=== PATIENT | female | born 1935 | race Caucasian/White ===

== ENCOUNTER 2018-04-06 15:37 | Emergency (ER) | payer OTHER ==
--- NOTE | 2018-04-06 16:37 | RAD REPORT ---
EXAM DESCRIPTION: CT - CTHCSPWOC - 04/06/2018 4:18 pm CLINICAL HISTORY: Fall, head and neck trauma COMPARISON: CT imaging August 2016, CT head examination October 2017 TECHNIQUE: Axial 5 mm thick images of the head were obtained. Axial 2 mm thick images of the cervic al spine were obtained with sagittal and coronal reconstruction images generated and reviewed. All CT scans are performed using dose optimization technique as appropriate and may include automated exposure control or mA/KV adjustment according to patient size. FINDINGS: No intracranial hemorrhage. No mass effect, edema or shift of midline structures. Patient has underlying atrophy and chronic ischemic change similar to prior imaging. Ventricles are in propor tion to volume loss. No suspicion for acute infarction. No extra-axial fluid collections. Mastoid air cells and paranasal sinuses are clear. No globe or orbit abnormality seen. Small right frontal scalp hematoma is present. Posterior fossa assessment is limited. Cervical body height and alignment are normal. C5-6 and C6-7 disc space narrowing posteriorly noted. This is not significantly different from comparison. No fracture or acute bony abnormality. No paraspinal mass or hematoma. IMPRESSION: Atrophy and chronic ischemic changes are present similar to comparison. No hemorrhage or other acute intracranial finding. Cervical spine degenerative change similar to comparison. No acute findings noted.
--- NOTE | 2018-04-06 16:59 | RAD REPORT ---
EXAM DESCRIPTION: RAD - Knee Right 3 View - 04/06/2018 4:32 pm CLINICAL HISTORY: Trip and fall, knee pain COMPARISON: None. FINDINGS: No fracture, dislocation or periosteal reaction.No joint effusion seen. No joint space sánchez rowing. No foreign body or other soft tissue abnormality. Mild degenerative spurring along the articular margins the patella. IMPRESSION: Mild degenerative change with no acute finding. Concerns for internal derangement or occult bone process can be addressed with MR imaging.
--- NOTE | 2018-04-06 17:08 | ER ---
Nurse's Notes [facility] Name: Argenis Wayne Age: 82 yrs Sex: Female : 1935 Arrival Date: 04/06/2018 Time: 15:44 Bed 26 Private MD: Diagnosis: Contusion of other part of head;Other internal derangements of knee Presentation: 04/06 15:51 Presenting complaint: EMS states: pt was going to check her mail when she tripped over tl3 her shoe and fell forward and hit her head on the floor, no LOC, no vomiting, pt has small laceration/ avulsion to center of forehead, no active bleeding. Transition of care: patient was received from another setting of care (long-term care facility), [facility]. Onset of symptoms was April 06, 2018 at 15:54. Risk Assessment: Do you want to hurt yourself or someone else? Patient reports no desire to harm self or others. Initial Sepsis Screen: Does the patient meet any 2 criteria? No. Patient's initial sepsis screen is negative. Does the patient have a suspected source of infection? No. Patient's initial sepsis screen is negative. Care prior to arrival: None. 15:51 Method Of Arrival: EMS: [facility] tl3 15:51 Acuity: IVAN 3 tl3 Triage Assessment: 16:05 General: Appears comfortable, well groomed, well developed, well nourished, Behavior is tl3 calm, cooperative, appropriate for age. Pain: Complains of pain in forehead. EENT: No deficits noted. Neuro: Level of Consciousness is awake, alert, obeys commands, Oriented to person, place, time, situation, Appropriate for age. Cardiovascular: Heart tones S1 S2 present Patient's skin is warm and dry. Rhythm is regular. Respiratory: Airway is patent Respiratory effort is even, unlabored, Respiratory pattern is regular, symmetrical, Breath sounds are clear bilaterally. GI: No signs and/or symptoms were reported involving the gastrointestinal system. : No signs and/or symptoms were reported regarding the genitourinary system. Derm: Wound noted forehead Wound is laceration/avulsion 1 in. Musculoskeletal: No signs and/or symptoms reported regarding the musculoskeletal system. Historical: - Allergies: 16:05 atorvastatin; tl3 16:05 Hydrocodone-Acetaminophen; tl3 16:05 PROPOXYPHENE; tl3 16:05 Sulfa (Sulfonamide Antibiotics); tl3 - Home Meds: 16:05 amlodipine 5 mg tab 1 tab once daily [Active]; [place] Thyroid 60 mg Oral tab for tl3 Hypothyroidism [Active]; aspirin 81 mg Oral TbEC 1 tab once daily for Myocardial Infarction Prevention [Active]; carvedilol 3.125 mg Oral tab 1 tab 2 times per day for Hypertension [Active]; Centrum Silver Oral daily [Active]; digoxin 125 mcg Oral tab 1 tab once daily [Active]; donepezil 10 mg Oral tab 1 tab once daily [Active]; Invokamet 150-1,000 mg oral tab 1 tab 2 times per day [Active]; Januvia 100 mg Oral tab 1 tab once daily [Active]; memantine 10 mg oral tab [Active]; naproxen sodium 500 mg Oral TM24 1 tabs twice a day [Active]; olanzapine 2.5 mg oral tab 1 tabs once daily [Active]; pantoprazole 40 mg oral TbEC 1 tab once daily [Active]; Restasis 0.05 % ophthalmic dpet 1 drop 2 times per day [Active]; sertraline 100 mg Oral tab 1.5 tabs once daily [Active]; simvastatin 40 mg Oral tab 1 tab once daily [Active]; Vitamin B-12 1,000 mcg Oral TbER 2000 mcg daily [Active]; Vitamin D Oral 1000 unit daily [Active]; - PMHx: 16:05 Anxiety; CAD; Dementia; Diabetes - NIDDM; GERD; High Cholesterol; Hypertension; tl3 Hypothyroidism; - Immunization history:: Adult Immunizations up to date. - Social history:: Smoking status: unknown. - Ebola Screening: : Patient denies travel to an Ebola-affected area in the 21 days before illness onset. Screenin:08 Abuse screen: Denies threats or abuse. Nutritional screening: No deficits noted. tl3 Tuberculosis screening: No symptoms or risk factors identified. Fall Risk Fall in past 12 months (25 points). Assessment: 16:08 Reassessment: Patient is alert, oriented x 3, equal unlabored respirations, skin tl3 warm/dry/pink. pt AAOX4 going to CT. General: Appears. 17:10 Reassessment: Patient appears in no apparent distress at this time. No changes from tl3 previously documented assessment. Patient and/or family updated on plan of care and expected duration. Pain level reassessed. Patient is alert, oriented x 3, equal unlabored respirations, skin warm/dry/pink. 17:39 Reassessment: Patient appears in no apparent distress at this time. No changes from tl3 previously documented assessment. Patient and/or family updated on plan of care and expected duration. Pain level reassessed. Patient is alert, oriented x 3, equal unlabored respirations, skin warm/dry/pink. wound cleaned and dressed with neosporin and a bandaid. Vital Signs: 16:08 BP 136 / 57; Pulse 60; Resp 18; Temp 98.3; Pulse Ox 100% ; tl3 17:10 BP 129 / 60; Pulse 58; Resp 18; Pulse Ox 95% ; tl3 17:39 BP 129 / 57; Pulse 58; Resp 18; Pulse Ox 96% ; tl3 ED Course: 15:44 Patient arrived in ED. iw 15:49 Eduardo Mcmullen MD is Attending Physician. gs 15:51 Yvonne Silveira, RN is Primary Nurse. tl3 15:55 Triage completed. tl3 16:[address] vm2 16:08 Arm band placed on left wrist. tl3 16:08 Patient has correct armband on for positive identification. Bed in low position. Call tl3 light in reach. Side rails up X2. Pulse ox on. NIBP on. Warm blanket given. 16:08 No provider procedures requiring assistance completed. tl3 16:19 CT Head C Spine In Process Unspecified. EDMS 16:26 X-ray completed. Patient tolerated procedure well. Patient moved back from radiology. mh1 16:26 Knee Right 3 View XRAY In Process Unspecified. EDMS 16:34 EKG done, by manometer technician. reviewed by Eduardo Mcmullen MD. at1 17:10 Patient did not have IV access during this emergency room visit. tl3 Administered Medications: 17:38 Drug: Tetanus-Diphtheria Toxoid Adult 0.5 ml {Roll Wrapper: [employer] ([employer]). Exp: tl3 06/18/2020. Lot #: [id number]. } Route: IM; Site: left deltoid; 17:38 Follow up: Response: Medication administered at discharge. tl3 Outcome: 17:08 Discharge ordered by . gs 17:39 Discharged to home ambulatory, with friend. tl3 17:39 Condition: stable 17:39 Discharge instructions given to patient, friend, Instructed on discharge instructions, follow up and referral plans. Demonstrated understanding of instructions, follow-up care, wound care. 17:41 Patient left the ED. tl3 Signatures: Dispatcher [employer] EDMS Lisa Esqueda mh1 Piper Perez, RN RN iw [address], natural resource specialist EKG Tat1 Jolly Coy 2 Eduardo Mcmullen MD MD gs Lowrey, Tammy, URVASHI RN tl3
--- NOTE | 2018-04-06 17:08 | EDPHYS ---
Physician Documentation [facility] Name: Argenis Wayne Age: 82 yrs Sex: Female : 1935 Arrival Date: 04/06/2018 Time: 15:44 Bed 26 Private MD: ED Physician Eduardo Mcmullen HPI: 04/06 16:52 This 82 yrs old Female presents to ER via EMS with unknown complaint. gs 16:52 Details of fall: The patient fell from an upright position. Onset: The symptoms/episode gs began/occurred acutely, just prior to arrival. Associated injuries: The patient sustained injury to the head, abrasion. Severity of symptoms: At their worst the symptoms were moderate. The patient has experienced similar episodes in the past, a few times. The patient has not recently seen a physician. Historical: - Allergies: 16:05 atorvastatin; tl3 16:05 Hydrocodone-Acetaminophen; tl3 16:05 PROPOXYPHENE; tl3 16:05 Sulfa (Sulfonamide Antibiotics); tl3 - Home Meds: 16:05 amlodipine 5 mg tab 1 tab once daily [Active]; [place] Thyroid 60 mg Oral tab for tl3 Hypothyroidism [Active]; aspirin 81 mg Oral TbEC 1 tab once daily for Myocardial Infarction Prevention [Active]; carvedilol 3.125 mg Oral tab 1 tab 2 times per day for Hypertension [Active]; Centrum Silver Oral daily [Active]; digoxin 125 mcg Oral tab 1 tab once daily [Active]; donepezil 10 mg Oral tab 1 tab once daily [Active]; Invokamet 150-1,000 mg oral tab 1 tab 2 times per day [Active]; Januvia 100 mg Oral tab 1 tab once daily [Active]; memantine 10 mg oral tab [Active]; naproxen sodium 500 mg Oral TM24 1 tabs twice a day [Active]; olanzapine 2.5 mg oral tab 1 tabs once daily [Active]; pantoprazole 40 mg oral TbEC 1 tab once daily [Active]; Restasis 0.05 % ophthalmic dpet 1 drop 2 times per day [Active]; sertraline 100 mg Oral tab 1.5 tabs once daily [Active]; simvastatin 40 mg Oral tab 1 tab once daily [Active]; Vitamin B-12 1,000 mcg Oral TbER 2000 mcg daily [Active]; Vitamin D Oral 1000 unit daily [Active]; - PMHx: 16:05 Anxiety; CAD; Dementia; Diabetes - NIDDM; GERD; High Cholesterol; Hypertension; tl3 Hypothyroidism; - Immunization history:: Adult Immunizations up to date. - Social history:: Smoking status: unknown. - Ebola Screening: : Patient denies travel to an Ebola-affected area in the 21 days before illness onset. ROS: 16:52 Cardiovascular: Negative for chest pain, palpitations. gs 16:52 Respiratory: Negative for shortness of breath. 16:52 Neuro: Negative for syncope, near syncope. 16:52 All other systems are negative. Exam: 16:52 Eyes: Pupils equal round and reactive to light, extra-ocular motions intact. Lids and gs lashes normal. Conjunctiva and sclera are non-icteric and not injected. Cornea within normal limits. Periorbital areas with no swelling, redness, or edema. ENT: Nares patent. No nasal discharge, no septal abnormalities noted. Tympanic membranes are normal and external auditory canals are clear. Oropharynx with no redness, swelling, or masses, exudates, or evidence of obstruction, uvula midline. Mucous membranes moist. Neck: Trachea midline, no thyromegaly or masses palpated, and no cervical lymphadenopathy. Supple, full range of motion without nuchal rigidity, or vertebral point tenderness. No Meningismus. Chest/axilla: Normal chest wall appearance and motion. Nontender with no deformity. No lesions are appreciated. Cardiovascular: Regular rate and rhythm with a normal S1 and S2. No gallops, murmurs, or rubs. Normal PMI, no JVD. No pulse deficits. Respiratory: Lungs have equal breath sounds bilaterally, clear to auscultation and percussion. No rales, rhonchi or wheezes noted. No increased work of breathing, no retractions or nasal flaring. Abdomen/GI: Soft, non-tender, with normal bowel sounds. No distension or tympany. No guarding or rebound. No evidence of tenderness throughout. Back: No spinal tenderness. No costovertebral tenderness. Full range of motion. Neuro: Awake and alert, GCS 15, oriented to person, place, time, and situation. Cranial nerves II-XII grossly intact. Motor strength 5/5 in all extremities. Sensory grossly intact. Cerebellar exam normal. Normal gait. 16:52 Constitutional: The patient appears alert, awake. 16:52 Head/face: Noted is abrasion(s), that are mild, of the forehead, hematoma, that is mild, of the forehead. 16:52 ECG was reviewed by the Attending Physician. 16:52 Musculoskeletal/extremity: Circulation is intact in all extremities. Joints: the right knee displays painful range of motion, swelling, tenderness. 16:52 Skin: injury, abrasion(s). Vital Signs: 16:08 BP 136 / 57; Pulse 60; Resp 18; Temp 98.3; Pulse Ox 100% ; tl3 17:10 BP 129 / 60; Pulse 58; Resp 18; Pulse Ox 95% ; tl3 17:39 BP 129 / 57; Pulse 58; Resp 18; Pulse Ox 96% ; tl3 MDM: 16:00 Patient medically screened. gs 16:52 Differential diagnosis: abrasion, closed head injury, fracture, laceration. Data gs reviewed: vital signs, nurses notes. Response to treatment: the patient's symptoms have markedly improved after treatment, and as a result, I will discharge patient. 04/06 16:01 Order name: CT Head C Spine; Complete Time: 17:06 04/06 16:01 Order name: Knee Right 3 View XRAY; Complete Time: 17:06 gs 04/06 16:06 Order name: EKG; Complete Time: 16:06 gs 04/06 16:06 Order name: EKG - Nurse/Tech; Complete Time: 16:47 gs EC:52 Rate is 56 beats/min. Rhythm is regular. WA interval is normal. QRS interval is normal. gs QT interval is normal. T waves are Flattened. No ST changes noted. Clinical impression: NSR w/ Non-specific ST/T Changes. Interpreted by me. Administered Medications: 17:38 Drug: Tetanus-Diphtheria Toxoid Adult 0.5 ml {Informatics Coordinator: [employer] ([employer]). Exp: tl3 06/18/2020. Lot #: [id number]. } Route: IM; Site: left deltoid; 17:38 Follow up: Response: Medication administered at discharge. tl3 Disposition: 04/06/18 17:08 Discharged to Home. Impression: Contusion of other part of head, Other internal derangements of knee. - Condition is Stable. - Discharge Instructions: Head Injury, Adult, Knee Pain. - Medication Reconciliation Form, Thank You Letter, Antibiotic Education, Prescription Opioid Use form. - Follow up: Private Physician; When: 2 - 3 days; Reason: Re-evaluation by your physician. Signatures: Dispatcher [employer] Eduardo Tripathi MD MD Yvonne Silveira, RN RN tl3 Corrections: (The following items were deleted from the chart) 17:41 17:08 04/06/2018 17:08 Discharged to Home. Impression: Contusion of other part of head; tl3 Other internal derangements of knee. Condition is Stable. Forms are Medication Reconciliation Form, Thank You Letter, Antibiotic Education, Prescription Opioid Use. Follow up: Private Physician; When: 2 - 3 days; Reason: Re-evaluation by your physician. gs
[2018-04-06] MEDS ORDERED: TETANUS & DIPHTHERIA TOX,ADULT 0.5 ML VIAL ONE (17:15)
--- NOTE | 2018-04-06 20:36 | EKG ---
Test Date: 2018-04-06 Test Time: 16:37:11 Jet Engine Mechanic: BRENDA MEASUREMENT RESULTS: Intervals: Rate: 56 UT: 156 QRSD: 84 QT: 432 QTc: 416 [place]: P: 61 UT: 156 QRS: 43 T: 38 INTERPRETIVE STATEMENTS: Sinus bradycardia Nonspecific ST abnormality Abnormal ECG Compared to ECG 11/17/2017 22:30:38 ST (T wave) deviation now present Myocardial infarct finding no longer present Electronically Signed On 04-06-18 20:35:12 CDT by Evens Ash
== END 2018-04-06 17:41 | disposition home or self-care (01) ==
LOC: ER 15:37
DX: M23.8X1 Other internal derangements of right knee (principal); W18.39XA Other fall on same level, initial encounter; Y93.89 Activity, other specified; Y92.9 Unspecified place or not applicable; Z23 Encounter for immunization; I10 Essential (primary) hypertension; E11.9 Type 2 diabetes mellitus without complications; E78.00 Pure hypercholesterolemia, unspecified; E03.9 Hypothyroidism, unspecified; Z79.82 Long term (current) use of aspirin; Z88.2 Allergy status to sulfonamides; Z88.5 Allergy status to narcotic agent; Z88.8 Allergy status to other drugs, medicaments and biological substances
CPT/HCPCS: 70450; 72125; 90714; 93005; 99284

== ENCOUNTER 2018-09-27 15:18 | Emergency (ER) | payer OTHER ==
--- NOTE | 2018-09-27 16:04 | RAD REPORT ---
EXAM DESCRIPTION: CT - CTHCSPWOC - 09/27/2018 3:52 pm CLINICAL HISTORY: Fall, head and neck injury COMPARISON: CT head and cervical March 2018 TECHNIQUE: Axial 5 mm thick images of the head were obtained. Axial 2 mm thick images of the cervic al spine were obtained with sagittal and coronal reconstruction images generated and reviewed. All CT scans are performed using dose optimization technique as appropriate and may include automated exposure control or mA/KV adjustment according to patient size. FINDINGS: No intracranial hemorrhage, mass, edema or acute intracranial finding. No suspicion for acute infarct ion. Atrophy and chronic ischemic changes are present. Ventricles appear slightly of proportion to th e amount of volume loss. Ventricular size has not changed from [place] imaging. Mastoid air cells and pa ranasal sinuses are clear. No globe or orbit abnormality seen. Minimal contusion or hematoma in the p osterior right parietal scalp soft tissues. Cervical bodies are normal in height. There is a very slight anterior subluxation of C5 on C6 that is similar to [place]. Very pronounced degenerative change surrounds the dens and anterior arch C1. Mild d isc space narrowing throughout the cervical spine. No fracture or acute bony abnormality. No paraspinal mass or hematoma. IMPRESSION: No hemorrhage, edema or acute intracranial finding. Atrophy and chronic ischemic changes are present. Ventricles are prominent. Intracranial findings mat ch the March study. Cervical spine degenerative change present matching the March study. No acute cervical spine finding.
--- NOTE | 2018-09-27 16:12 | ER ---
Nurse's Notes [facility] Name: Argenis Wayne Age: 83 yrs Sex: Female : 1935 Arrival Date: 09/27/2018 Time: 15:19 Bed 28 Private MD: Diagnosis: Hematoma scalp;Acute pain due to trauma Presentation: 09/27 15:19 Presenting complaint: EMS states: EMT STATES: PATIENT IS FROM [facility], SHE WAS IN THE [facility]ITY C[facility]. SHE FELL FROM STANDING AND HIT HER HEAD. DID NOT COMPLAIN OF ANY PROBLEM INITIALLY BUT MINUTES AFTER PATIENT HAVING NECK PAIN AND HEADACHE AND STARTED TO GET NAUSEA. PATIENT IS NOT ON BLOOD THINNERS. Transition of care: [facility]. Onset of symptoms was September 27, 2018 at 14:45. Risk Assessment: Do you want to hurt yourself or someone else? Patient reports no desire to harm self or others. Initial Sepsis Screen: Does the patient meet any 2 criteria? No. Patient's initial sepsis screen is negative. Does the patient have a suspected source of infection? No. Patient's initial sepsis screen is negative. Care prior to arrival: None. 15:19 Method Of Arrival: EMS: [facility] rv 15:19 Acuity: IVAN 3 rv Historical: - Allergies: 15:26 atorvastatin; rv 15:26 Hydrocodone-Acetaminophen; rv 15:26 PROPOXYPHENE; rv 15:26 Sulfa (Sulfonamide Antibiotics); rv - Home Meds: 15:26 amlodipine 5 mg tab 1 tab once daily [Active]; [place] Thyroid 60 mg Oral tab for rv Hypothyroidism [Active]; aspirin 81 mg Oral TbEC 1 tab once daily for Myocardial Infarction Prevention [Active]; carvedilol 3.125 mg Oral tab 1 tab 2 times per day for Hypertension [Active]; Centrum Silver Oral daily [Active]; digoxin 125 mcg Oral tab 1 tab once daily [Active]; donepezil 10 mg Oral tab 1 tab once daily [Active]; Invokamet 150-1,000 mg Oral tab 1 tab 2 times per day [Active]; Januvia 100 mg Oral tab 1 tab once daily [Active]; memantine 10 mg Oral tab [Active]; naproxen sodium 500 mg Oral TM24 1 tabs twice a day [Active]; olanzapine 2.5 mg Oral tab 1 tabs once daily [Active]; pantoprazole 40 mg Oral TbEC 1 tab once daily [Active]; Restasis 0.05 % ophthalmic dpet 1 drop 2 times per day [Active]; sertraline 100 mg Oral tab 1.5 tabs once daily [Active]; simvastatin 40 mg Oral tab 1 tab once daily [Active]; Vitamin B-12 1,000 mcg Oral TbER 2000 mcg daily [Active]; Vitamin D Oral 1000 unit daily [Active]; - PMHx: 15:26 Anxiety; CAD; Dementia; Diabetes - NIDDM; GERD; High Cholesterol; Hypertension; rv Hypothyroidism; - PSHx: 15:26 None; rv - Immunization history:: Adult Immunizations unknown, Flu vaccine status is unknown. - Social history:: Smoking status: Patient/guardian denies using tobacco, never smoked. - Ebola Screening: : Patient negative for fever greater than or equal to 101.5 degrees Fahrenheit, and additional compatible Ebola Virus Disease symptoms Patient denies exposure to infectious person Patient denies travel to an Ebola-affected area in the 21 days before illness onset. Screenin:28 Abuse screen: Denies threats or abuse. Denies injuries from another. Nutritional rv screening: No deficits noted. Tuberculosis screening: No symptoms or risk factors identified. Fall Risk None identified. Assessment: 15:27 General: Appears in no apparent distress. comfortable, Behavior is calm, cooperative. rv Pain: Complains of pain in HEAD. Neuro: Level of Consciousness is awake, alert, obeys commands, Oriented to person, place, time, situation. Cardiovascular: Capillary refill < 3 seconds. Respiratory: Airway is patent. GI: No signs and/or symptoms were reported involving the gastrointestinal system. : No signs and/or symptoms were reported regarding the genitourinary system. EENT: No signs and/or symptoms were reported regarding the EENT system. Derm: Skin is intact. Musculoskeletal: Reports pain in HEAD. Vital Signs: 15:27 BP 124 / 54; Pulse 60; Resp 16; Temp 97.7; Pulse Ox 97% on R/A; Weight 65.77 kg (R); rv 16:01 BP 137 / 54; Pulse 61; Resp 16; Pulse Ox 97% on R/A; rv ED Course: 15:19 Patient arrived in ED. rv 15:20 Charlie Sharp PA is PHCP. jr8 15:20 Doug Medina MD is Attending Physician. jr8 15:22 Triage completed. rv 15:28 Patient has correct armband on for positive identification. Bed in low position. Call rv light in reach. Side rails up X2. Pulse ox on. NIBP on. 15:29 Patient placed in an exam room, on a stretcher, on pulse oximetry, Patient notified of rv wait time Patient's private physician notified. 15:51 CT completed. Patient tolerated procedure well. Patient moved back from CT. 15:52 CT Head C Spine In Process Unspecified. EDMS 16:29 No provider procedures requiring assistance completed. Patient did not have IV access rv during this emergency room visit. Administered Medications: No medications were administered Outcome: 16:11 Discharge ordered by . jr8 16:29 Discharged to home via wheelchair. rv 16:29 Condition: good 16:29 Discharge instructions given to bench hand, Instructed on discharge instructions, follow up and referral plans. Demonstrated understanding of instructions, follow-up care. 16:30 Patient left the ED. rv Signatures: Dispatcher [employer] EDAK Theo Sidhu Charlie Sharp PA PA jr8 Tu Carey, RN RN rv
--- NOTE | 2018-09-27 16:12 | EDPHYS ---
Physician Documentation [facility] Name: Argenis Wayne Age: 83 yrs Sex: Female : 1935 Arrival Date: 09/27/2018 Time: 15:19 Bed 28 Private MD: ED Physician Doug Medina HPI: 09/27 15:58 This 83 yrs old Female presents to ER via EMS with complaints of fall injury. jr8 15:58 Details of fall: The patient fell from an upright position, while standing. Onset: The jr8 symptoms/episode began/occurred acutely, today. Associated injuries: The patient sustained injury to the head, neck injury. Severity of symptoms: At their worst the symptoms were mild, in the emergency department the symptoms are unchanged. The patient has not experienced similar symptoms in the past. The patient has not recently seen a physician. Patient stated that she was standing and accidently fell landing on back of head. Complained of head and neck pain with nausea. Denies any other pain or complaints. Denies any symptoms preceding fall. Historical: - Allergies: 15:26 atorvastatin; rv 15:26 Hydrocodone-Acetaminophen; rv 15:26 PROPOXYPHENE; rv 15:26 Sulfa (Sulfonamide Antibiotics); rv - Home Meds: 15:26 amlodipine 5 mg tab 1 tab once daily [Active]; [place] Thyroid 60 mg Oral tab for rv Hypothyroidism [Active]; aspirin 81 mg Oral TbEC 1 tab once daily for Myocardial Infarction Prevention [Active]; carvedilol 3.125 mg Oral tab 1 tab 2 times per day for Hypertension [Active]; Centrum Silver Oral daily [Active]; digoxin 125 mcg Oral tab 1 tab once daily [Active]; donepezil 10 mg Oral tab 1 tab once daily [Active]; Invokamet 150-1,000 mg Oral tab 1 tab 2 times per day [Active]; Januvia 100 mg Oral tab 1 tab once daily [Active]; memantine 10 mg Oral tab [Active]; naproxen sodium 500 mg Oral TM24 1 tabs twice a day [Active]; olanzapine 2.5 mg Oral tab 1 tabs once daily [Active]; pantoprazole 40 mg Oral TbEC 1 tab once daily [Active]; Restasis 0.05 % ophthalmic dpet 1 drop 2 times per day [Active]; sertraline 100 mg Oral tab 1.5 tabs once daily [Active]; simvastatin 40 mg Oral tab 1 tab once daily [Active]; Vitamin B-12 1,000 mcg Oral TbER 2000 mcg daily [Active]; Vitamin D Oral 1000 unit daily [Active]; - PMHx: 15:26 Anxiety; CAD; Dementia; Diabetes - NIDDM; GERD; High Cholesterol; Hypertension; rv Hypothyroidism; - PSHx: 15:26 None; rv - Immunization history:: Adult Immunizations unknown, Flu vaccine status is unknown. - Social history:: Smoking status: Patient/guardian denies using tobacco, never smoked. - Ebola Screening: : Patient negative for fever greater than or equal to 101.5 degrees Fahrenheit, and additional compatible Ebola Virus Disease symptoms Patient denies exposure to infectious person Patient denies travel to an Ebola-affected area in the 21 days before illness onset. ROS: 15:58 Eyes: Negative for injury, pain, redness, and discharge, ENT: Negative for injury, jr8 pain, and discharge, Cardiovascular: Negative for chest pain, palpitations, and edema, Respiratory: Negative for shortness of breath, cough, wheezing, and pleuritic chest pain, Abdomen/GI: Negative for abdominal pain, nausea, vomiting, diarrhea, and constipation, Back: Negative for injury and pain, MS/Extremity: Negative for injury and deformity, Skin: Negative for injury, rash, and discoloration. 15:58 Neck: Positive for pain with movement, Negative for pain at rest, tenderness, bony tenderness. 15:58 Neuro: Positive for headache, Negative for altered mental status, dizziness, gait disturbance, loss of consciousness, numbness, seizure activity, speech changes, syncope, near syncope, tingling, tinnitus, tremor, visual changes, weakness. Exam: 15:58 Eyes: Pupils equal round and reactive to light, extra-ocular motions intact. Lids and jr8 lashes normal. Conjunctiva and sclera are non-icteric and not injected. Cornea within normal limits. Periorbital areas with no swelling, redness, or edema. ENT: Nares patent. No nasal discharge, no septal abnormalities noted. Tympanic membranes are normal and external auditory canals are clear. Oropharynx with no redness, swelling, or masses, exudates, or evidence of obstruction, uvula midline. Mucous membranes moist. Cardiovascular: Regular rate and rhythm with a normal S1 and S2. No gallops, murmurs, or rubs. Normal PMI, no JVD. No pulse deficits. Respiratory: Lungs have equal breath sounds bilaterally, clear to auscultation and percussion. No rales, rhonchi or wheezes noted. No increased work of breathing, no retractions or nasal flaring. Abdomen/GI: Soft, non-tender, with normal bowel sounds. No distension or tympany. No guarding or rebound. No evidence of tenderness throughout. Back: No spinal tenderness. No costovertebral tenderness. Full range of motion. Skin: Warm, dry with normal turgor. Normal color with no rashes, no lesions, and no evidence of cellulitis. MS/ Extremity: Pulses equal, no cyanosis. Neurovascular intact. Full, normal range of motion. Neuro: Awake and alert, GCS 15, oriented to person, place, time, and situation. Cranial nerves II-XII grossly intact. Motor strength 5/5 in all extremities. Sensory grossly intact. Cerebellar exam normal. Normal gait. 15:58 Head/face: Noted is hematoma, that is mild, of the left occipital area. 15:58 Neck: External neck: is normal, C-spine: appears grossly normal, no vertebral tenderness, no crepitus, Thyroid: appears normal, Trachea: is midline with no obvious abnormalities, ROM/movement: pain, that is mild, with any movement, Lymph nodes: no appreciated lymphadenopathy. Vital Signs: 15:27 BP 124 / 54; Pulse 60; Resp 16; Temp 97.7; Pulse Ox 97% on R/A; Weight 65.77 kg (R); rv 16:01 BP 137 / 54; Pulse 61; Resp 16; Pulse Ox 97% on R/A; rv MDM: 15:20 Patient medically screened. jr8 16:10 Data reviewed: vital signs, nurses notes, radiologic studies, CT scan, and as a result, jr8 I will discharge patient. Data interpreted: Pulse oximetry: on room air is 97 %. Interpretation: normal. Counseling: I had a detailed discussion with the patient and/or guardian regarding: the historical points, exam findings, and any diagnostic results supporting the discharge/admit diagnosis, radiology results, the need for outpatient follow up, a family practitioner, to return to the emergency department if symptoms worsen or persist or if there are any questions or concerns that arise at home. 09/27 15:23 Order name: CT Head C Spine; Complete Time: 16:10 jr8 Administered Medications: No medications were administered Disposition: 09/28 06:39 Co-signature as Attending Physician, Doug Medina MD I agree with the assessment and genesis plan of care. Disposition: 09/27/18 16:11 Discharged to Home. Impression: Hematoma scalp, Acute pain due to trauma. - Condition is Stable. - Discharge Instructions: Head Injury, Adult. - Medication Reconciliation Form, Thank You Letter, Antibiotic Education, Prescription Opioid Use form. - Follow up: Private Physician; When: 2 - 3 days; Reason: Recheck today's complaints, Continuance of care, Re-evaluation by your physician. - Problem is new. - Symptoms have improved. Signatures: Dispatcher [employer] EDDoug Caballero MD MD cha Roszak, Josh, PA PA jr8 Tu Carey RN RN rv Corrections: (The following items were deleted from the chart) 09/27 16:30 16:11 09/27/2018 16:11 Discharged to Home. Impression: Hematoma scalp; Acute pain due rv to trauma. Condition is Stable. Forms are Medication Reconciliation Form, Thank You Letter, Antibiotic Education, Prescription Opioid Use. Follow up: Private Physician; When: 2 - 3 days; Reason: Recheck today's complaints, Continuance of care, Re-evaluation by your physician. Problem is new. Symptoms have improved. jr8
== END 2018-09-27 16:30 | disposition home or self-care (01) ==
LOC: ER 15:18
DX: G89.11 Acute pain due to trauma (principal); W18.39XA Other fall on same level, initial encounter; Y93.9 Activity, unspecified; Y92.9 Unspecified place or not applicable; Z79.82 Long term (current) use of aspirin; Z88.2 Allergy status to sulfonamides; Z88.5 Allergy status to narcotic agent; Z88.8 Allergy status to other drugs, medicaments and biological substances; I10 Essential (primary) hypertension; E03.9 Hypothyroidism, unspecified; F03.90 Unspecified dementia, unspecified severity, without behavioral disturbance, psychotic disturbance, mood disturbance, and anxiety; E78.00 Pure hypercholesterolemia, unspecified; E11.9 Type 2 diabetes mellitus without complications
CPT/HCPCS: 70450; 72125; 99284

== ENCOUNTER 2019-02-26 06:58 | Emergency (ER) | payer OTHER ==
--- NOTE | 2019-02-26 08:29 | RAD REPORT ---
EXAM DESCRIPTION: CT - [id number] - 02/26/2019 7:17 am CLINICAL HISTORY: Trauma, head and neck injury. Fall injury;Pain COMPARISON: Head C Spine Mpr Wo Con dated 09/27/2018; Head C Spine Mpr Wo Con dated 04/06/2018; Head C Spine Mpr Wo Con dated 09/09/2016; Head C Spine Mpr Wo Con dated 04/15/2016 TECHNIQUE: Axial 5 mm thick images of the head were obtained. Axial 2 mm thick images of the cervical spine were obtained with sagittal and coronal reconstruction images generated and reviewed. All CT scans are performed using dose optimization technique as appropriate and may include automated exposure control or mA/KV adjustment according to patient size. FINDINGS: CT HEAD WITHOUT CONTRAST: No acute hemorrhage, hydrocephalus or extra-axial collection is identified.No areas of brain edema or midline shift. The paranasal sinuses and mastoids are clear.The calvarium is intact. Small right posterior scalp hem atoma. Vertebral atherosclerosis. CT CERVICAL SPINE WITHOUT CONTRAST: No fracture or subluxation.No prevertebral soft tissues swelling is identified. IMPRESSION: No acute intracranial or cervical spine findings.
[2019-02-26] MEDS ORDERED: LIDOCAINE 1% W/EPI 1:100,000 MDV 50 ML VIAL ONE (09:01)
--- NOTE | 2019-02-26 09:08 | ER ---
Nurse's Notes [facility] Name: Argenis Wayne Age: 83 yrs Sex: Female : 1935 Arrival Date: 02/26/2019 Time: 07:04 Bed 3 Private MD: Diagnosis: Laceration without foreign body of scalp;Superficial injury of head;Fracture of one rib, left side Presentation: 02/26 07:04 Presenting complaint: EMS states: fell in the shower today at 0635 and hit the back of aa5 the head. Negative LOC. Hematoma noted to top of head. Pt is A\T\Ox4. Care prior to arrival: Glucose check: 135. Mechanism of Injury: Fall from standing position. Trauma event details: Injury occurred in the [facility], Injury occurred: at home. Injury occurred: February 26, 2019. 07:04 Method Of Arrival: EMS: [facility] 07:04 Transition of care: patient was received from another setting of care (long-term care [facility] facility), [facility]. Onset of symptoms was February 26, 2019. Risk Assessment: Do you want to hurt yourself or someone else? Patient reports no desire to harm self or others. Initial Sepsis Screen: Does the patient meet any 2 criteria? No. Patient's initial sepsis screen is negative. Does the patient have a suspected source of infection? No. Patient's initial sepsis screen is negative. 07:04 Acuity: IVAN 2 aa5 Trauma Activation: Alert Physician: ED Physician; Name: ; Notified At: ; Arrived At: Physician: General Surgeon; Name: ; Notified At: ; Arrived At: Physician: Radiology; Name: ; Notified At: ; Arrived At: Physician: Respiratory; Name: ; Notified At: ; Arrived At: Physician: Lab; Name: ; Notified At: ; Arrived At: Historical: - Allergies: 07:19 atorvastatin; aa5 07:19 Hydrocodone-Acetaminophen; aa5 07:19 PROPOXYPHENE; aa5 07:19 Sulfa (Sulfonamide Antibiotics); aa5 07:19 Codeine; aa5 - Home Meds: 07:19 amlodipine 5 mg tab 1 tab once daily [Active]; [place] Thyroid 60 mg Oral tab for aa5 Hypothyroidism [Active]; aspirin 81 mg Oral TbEC 1 tab once daily for Myocardial Infarction Prevention [Active]; carvedilol 3.125 mg Oral tab 1 tab 2 times per day for Hypertension [Active]; digoxin 125 mcg Oral tab 1 tab once daily [Active]; donepezil 10 mg Oral tab 1 tab once daily [Active]; Januvia 100 mg Oral tab 1 tab once daily [Active]; memantine 10 mg Oral tab [Active]; metformin 1,000 mg Oral tab 1 tab 2 times per day [Active]; naproxen sodium 500 mg Oral TM24 1 tabs twice a day [Active]; nitrofurantoin macrocrystal 50 mg Oral cap once daily [Active]; olanzapine 2.5 mg oral tab once daily [Active]; pantoprazole 40 mg oral TbEC 1 tab once daily [Active]; sertraline 100 mg Oral tab 1.5 tabs once daily [Active]; simvastatin 40 mg Oral tab 1 tab once daily [Active]; Vitamin B-12 1,000 mcg Oral TbER 2000 mcg daily [Active]; Restasis 0.05 % ophthalmic dpet 1 drop 2 times per day [Active]; Vitamin D3 1,000 unit oral cap daily [Active]; - PMHx: 07:19 Anxiety; CAD; Dementia; Diabetes - NIDDM; GERD; High Cholesterol; Hypertension; aa5 Hypothyroidism; CVA; - Immunization history:: Adult Immunizations unknown. - Social history:: Smoking status: Patient/guardian denies using tobacco. - Immunization history: Last tetanus immunization: unknown. - Ebola Screening: : No symptoms or risks identified at this time. Screenin:05 Abuse screen: No signs of abuse noted. Nutritional screening: No deficits noted. aa5 Tuberculosis screening: No symptoms or risk factors identified. Fall Risk Fall in past 12 months (25 points). Secondary diagnosis (15 points) dementia, Mental Status- Overestimates/Forgets Limitations (15 pts.). Total Shirley Fall Scale indicates High Risk Score (45 or more points). Fall prevention measures have been instituted. Side Rails Up X 2 Placed Close to Nursing Station. Primary Survey: 07:04 NO uncontrolled hemorrhage observed. A: The patient is alert. Airway: patent. aa5 Breathing/Chest: Chest inspection: symmetrical rise and fall of the chest. Circulation: Skin color: pink. Disability Alert. Exposure/Environment: A warming method has been applied: A warm blanket has been provided to the patient. 07:23 Reassessment Airway Airway Patent Breathing/Chest Chest inspection Symmetrical aa5 Circulation Color [place] Disability Alert. Secondary Survey: 07:08 HEENT: Head Other hematoma noted to top of head. Gastrointestinal: No deficits noted. aa5 : No deficits noted. Musculoskeletal: Range of motion: intact in all extremities. Assessment: 07:05 General: Appears comfortable, Behavior is calm, cooperative. Pain: Complains of pain in aa5 head Pain does not radiate. Quality of pain is described as tender, throbbing, Pain began post-fall today Is continuous. Neuro: Level of Consciousness is awake, alert, obeys commands, Oriented to person, place, time, situation, Stain Maker are equal bilaterally Moves all extremities. Speech is normal, Facial symmetry appears normal, Pupils are PERRLA. EENT: No signs and/or symptoms were reported regarding the EENT system. Cardiovascular: Heart tones S1 S2 present Pulses are 3+ in right radial artery and left radial artery Rhythm is regular. Respiratory: Airway is patent Respiratory effort is even, unlabored, Respiratory pattern is regular, symmetrical, Breath sounds are clear bilaterally. GI: Abdomen is round non-distended, Bowel sounds present X 4 quads. Abd is soft and non tender X 4 quads. Patient currently denies nausea, vomiting. : No signs and/or symptoms were reported regarding the genitourinary system. Derm: Skin is pink, warm \T\ dry. Hematoma noted to right side of top of head. Musculoskeletal: Range of motion: intact in all extremities. 07:07 Reassessment: Gauze and Kerlix applied to hematoma, mild bleeding noted. . aa5 07:23 Reassessment: Pt back from CT. aa5 07:25 Reassessment: VO to clean hematoma for better examination by provider. Hematoma cleaned aa5 with saline, moderate bleeding noted, PA notified, pressure dressing applied per provider at this time. . 07:25 Reassessment: Laceration noted to top of hematoma, measuring approximately 1.5in long . aa5 07:25 Reassessment: Patient is alert, oriented x 3, equal unlabored respirations, skin aa5 warm/dry/pink. 08:20 Reassessment: Pt resting in bed with eyes closed, respirations even and unlabored, skin aa5 is pink/warm/dry. Pt's caregiver (Raissa) at bedside . 09:00 Reassessment: Patient is alert, oriented x 3, equal unlabored respirations, skin aa5 warm/dry/pink. Laceration repair being completed by PA. 09:35 Reassessment: Patient is alert, oriented x 3, equal unlabored respirations, skin aa5 warm/dry/pink. Pt complaining of pain to left anterior aspect of lower rib cage, provider notified. . 10:45 Reassessment: Patient is alert, oriented x 3, equal unlabored respirations, skin aa5 warm/dry/pink. Pt assisted with bedpan, pt voided x 1 . 11:30 Reassessment: Patient is alert, oriented x 3, equal unlabored respirations, skin aa5 warm/dry/pink. 12:25 Reassessment: Patient is alert, oriented x 3, equal unlabored respirations, skin aa5 warm/dry/pink. Pt educated on need for incentive spirometer, pt demonstrated on how to use correctly. Pt's caregiver instructed on need for pt to use incentive spirometer at home to prevent Pneumonia. . Vital Signs: 07:05 BP 152 / 66; Pulse 67; Resp 16 S; Temp 98.0(O); Pulse Ox 98% on R/A; aa5 07:39 BP 147 / 65; Pulse 66; Resp 16 S; Pulse Ox 97% on R/A; aa5 08:30 BP 153 / 58; Pulse 64; Resp 16 S; Pulse Ox 95% on R/A; aa5 09:30 BP 145 / 67; Pulse 58; Resp 18 S; Pulse Ox 94% on R/A; aa5 10:30 BP 143 / 62; Pulse 58; Resp 16 S; Pulse Ox 95% on R/A; aa5 11:30 BP 145 / 68; Pulse 60; Resp 18 S; Pulse Ox 96% on R/A; aa5 12:20 BP 143 / 69; Pulse 60; Resp 16 S; Temp 98.0(TE); Pulse Ox 96% on R/A; aa5 Lisa [place]a Score: 07:05 Eye Response: spontaneous(4). Verbal Response: oriented(5). Motor Response: obeys aa5 commands(6). Total: 15. Trauma Score (Adult): 07:05 Eye Response: spontaneous(1); Verbal Response: oriented(1); Motor Response: obeys aa5 commands(2); Systolic BP: > 89 mm Hg(4); Respiratory Rate: 10 to 29 per min(4); Lisa Score: 15; Trauma Score: 12 07:39 Eye Response: spontaneous(1); Verbal Response: oriented(1); Motor Response: obeys aa5 commands(2); Systolic BP: > 89 mm Hg(4); Respiratory Rate: 10 to 29 per min(4); Lisa Score: 15; Trauma Score: 12 08:30 Eye Response: spontaneous(1); Verbal Response: oriented(1); Motor Response: obeys aa5 commands(2); Systolic BP: > 89 mm Hg(4); Respiratory Rate: 10 to 29 per min(4); Lisa Score: 15; Trauma Score: 12 09:30 Eye Response: spontaneous(1); Verbal Response: oriented(1); Motor Response: obeys aa5 commands(2); Systolic BP: > 89 mm Hg(4); Respiratory Rate: 10 to 29 per min(4); Lisa Score: 15; Trauma Score: 12 10:30 Eye Response: spontaneous(1); Verbal Response: oriented(1); Motor Response: obeys aa5 commands(2); Systolic BP: > 89 mm Hg(4); Respiratory Rate: 10 to 29 per min(4); Lisa Score: 15; Trauma Score: 12 11:30 Eye Response: spontaneous(1); Verbal Response: oriented(1); Motor Response: obeys aa5 commands(2); Systolic BP: > 89 mm Hg(4); Respiratory Rate: 10 to 29 per min(4); [place] Score: 15; Trauma Score: 12 12:20 Eye Response: spontaneous(1); Verbal Response: oriented(1); Motor Response: obeys aa5 commands(2); Systolic BP: > 89 mm Hg(4); Respiratory Rate: 10 to 29 per min(4); [place] Score: 15; Trauma Score: 12 ED Course: 07:04 Patient arrived in ED. aa5 07:04 Abi Duarte, RN is Primary Nurse. aa5 07:04 Arm band placed on Patient placed in an exam room, on a stretcher. aa5 07:04 Patient has correct armband on for positive identification. Placed in gown. Bed in low aa5 position. Call light in reach. Side rails up X2. 07:04 Patient maintains SpO2 saturation greater than 95% on room air. Thermoregulation: warm aa5 blanket given to patient. 07:06 Carlos Eduardo Lambert NP is PHCP. pm1 07:06 Doug Medina MD is Attending Physician. pm1 07:07 Triage completed. aa5 07:17 CT completed. Patient tolerated procedure well. Patient moved to CT via stretcher. Patient moved back from CT. 07:19 CT Head C Spine In Process Unspecified. EDMS 09:00 Assist provider with laceration repair on top of head to hematoma using 8 trish . Set aa5 up tray. Performed by Carlos Eduardo Lambert RESIDENTIAL ASSISTANT Dressed with 4X4s, Kerlix, Patient tolerated well. 11:29 Ribs Left XRAY In Process Unspecified. EDMS 11:31 Chest Single View XRAY In Process Unspecified. EDMS 12:25 Patient did not have IV access during this emergency room visit. aa5 Administered Medications: 09:00 Drug: Lidocaine-Epinephrine -1%: (1:100,000) 1 vials {Note: administered by jennifer Mcconnell NP during laceration repair. .} Volume: 20 ml; Route: Infiltration; 12:25 Drug: traMADol 50 mg Route: PO; aa5 12:25 Follow up: Response: Medication administered at discharge. aa5 Intake: 12:20 voided x 1 aa5 Outcome: 09:08 Discharge ordered by . pm1 09:08 Patient's length of stay was not longer than 2 hours. aa5 12:25 Discharged to home via wheelchair, with caregiver aa5 12:25 Condition: stable 12:25 Discharge instructions given to patient, and caregiver Instructed on discharge instructions, follow up and referral plans. medication usage, Demonstrated understanding of instructions, follow-up care, medications, Prescriptions given X 1. 12:36 Patient left the ED. aa5 Signatures: Dispatcher [employer] Sally Vera Audri, RN RN aa5 Carlos Eduardo Lambert RESIDENTIAL ASSISTANT RESIDENTIAL ASSISTANT pm1 Corrections: (The following items were deleted from the chart) 07:09 07:04 Care prior to arrival: None. aa5 aa5 07:10 07:04 Acuity: IVAN 2 aa5 aa5
--- NOTE | 2019-02-26 09:08 | EDPHYS ---
Physician Documentation [facility] Name: Argenis Wayne Age: 83 yrs Sex: Female : 1935 Arrival Date: 02/26/2019 Time: 07:04 Bed 3 Private MD: ED Physician Doug Medina HPI: 02/26 09:02 This 83 yrs old Female presents to ER via EMS with complaints of Fall Injury. pm1 09:02 Details of fall: The patient fell from an upright position, while standing. Onset: The pm1 symptoms/episode began/occurred just prior to arrival. Associated injuries: The patient sustained injury to the head, focal point on left anterior rib cage. The patient has not experienced similar symptoms in the past. The patient has not recently seen a physician. Patient standing in the shower and fell hitting the back of her head and possibly landing on left side. Patient with no LOC or neck pain. Historical: - Allergies: 07:19 atorvastatin; aa5 07:19 Hydrocodone-Acetaminophen; aa5 07:19 PROPOXYPHENE; aa5 07:19 Sulfa (Sulfonamide Antibiotics); aa5 07:19 Codeine; aa5 - Home Meds: 07:19 amlodipine 5 mg tab 1 tab once daily [Active]; Kennedy Thyroid 60 mg Oral tab for aa5 Hypothyroidism [Active]; aspirin 81 mg Oral TbEC 1 tab once daily for Myocardial Infarction Prevention [Active]; carvedilol 3.125 mg Oral tab 1 tab 2 times per day for Hypertension [Active]; digoxin 125 mcg Oral tab 1 tab once daily [Active]; donepezil 10 mg Oral tab 1 tab once daily [Active]; Januvia 100 mg Oral tab 1 tab once daily [Active]; memantine 10 mg Oral tab [Active]; metformin 1,000 mg Oral tab 1 tab 2 times per day [Active]; naproxen sodium 500 mg Oral TM24 1 tabs twice a day [Active]; nitrofurantoin macrocrystal 50 mg Oral cap once daily [Active]; olanzapine 2.5 mg oral tab once daily [Active]; pantoprazole 40 mg oral TbEC 1 tab once daily [Active]; sertraline 100 mg Oral tab 1.5 tabs once daily [Active]; simvastatin 40 mg Oral tab 1 tab once daily [Active]; Vitamin B-12 1,000 mcg Oral TbER 2000 mcg daily [Active]; Restasis 0.05 % ophthalmic dpet 1 drop 2 times per day [Active]; Vitamin D3 1,000 unit oral cap daily [Active]; - PMHx: 07:19 Anxiety; CAD; Dementia; Diabetes - NIDDM; GERD; High Cholesterol; Hypertension; aa5 Hypothyroidism; CVA; - Immunization history:: Adult Immunizations unknown. - Social history:: Smoking status: Patient/guardian denies using tobacco. - Immunization history: Last tetanus immunization: unknown. - Ebola Screening: : No symptoms or risks identified at this time. ROS: 09:02 Constitutional: Negative for fever, chills, and weight loss, Eyes: Negative for injury, pm1 pain, redness, and discharge, ENT: Negative for injury, pain, and discharge, Neck: Negative for injury, pain, and swelling, Cardiovascular: Negative for chest pain, palpitations, and edema, Respiratory: Negative for shortness of breath, cough, wheezing, and pleuritic chest pain, Abdomen/GI: Negative for abdominal pain, nausea, vomiting, diarrhea, and constipation, Back: Negative for injury and pain, : Negative for injury, bleeding, discharge, and swelling, MS/Extremity: Negative for injury and deformity. 09:02 Neuro: Negative for headache, weakness, numbness, tingling, and seizure. 09:02 Skin: Positive for laceration(s), of the scalp. Exam: 09:02 Constitutional: This is a well developed, well nourished patient who is awake, alert, pm1 and in no acute distress. 09:02 Eyes: Pupils equal round and reactive to light, extra-ocular motions intact. Lids and lashes normal. Conjunctiva and sclera are non-icteric and not injected. Cornea within normal limits. Periorbital areas with no swelling, redness, or edema. ENT: Nares patent. No nasal discharge, no septal abnormalities noted. Tympanic membranes are normal and external auditory canals are clear. Oropharynx with no redness, swelling, or masses, exudates, or evidence of obstruction, uvula midline. Mucous membranes moist. Neck: Trachea midline, no thyromegaly or masses palpated, and no cervical lymphadenopathy. Supple, full range of motion without nuchal rigidity, or vertebral point tenderness. No Meningismus. Cardiovascular: Regular rate and rhythm with a normal S1 and S2. No gallops, murmurs, or rubs. Normal PMI, no JVD. No pulse deficits. Respiratory: Lungs have equal breath sounds bilaterally, clear to auscultation and percussion. No rales, rhonchi or wheezes noted. No increased work of breathing, no retractions or nasal flaring. Abdomen/GI: Soft, non-tender, with normal bowel sounds. No distension or tympany. No guarding or rebound. No evidence of tenderness throughout. 09:02 Back: No spinal tenderness. No costovertebral tenderness. Full range of motion. Skin: Warm, dry with normal turgor. Normal color with no rashes, no lesions, and no evidence of cellulitis. MS/ Extremity: Pulses equal, no cyanosis. Neurovascular intact. Full, normal range of motion. 09:02 Head/face: Noted is no obvious of injury or deformity except a laceration(s), 4 cm(s), of the scalp posterior aspect. 09:02 Chest/axilla: Inspection: normal, Palpation: tenderness, focal point to left lower anterior aspect. 09:02 Neuro: Orientation: is normal, Motor: is normal, moves all fours. Vital Signs: 07:05 BP 152 / 66; Pulse 67; Resp 16 S; Temp 98.0(O); Pulse Ox 98% on R/A; aa5 07:39 BP 147 / 65; Pulse 66; Resp 16 S; Pulse Ox 97% on R/A; aa5 08:30 BP 153 / 58; Pulse 64; Resp 16 S; Pulse Ox 95% on R/A; aa5 09:30 BP 145 / 67; Pulse 58; Resp 18 S; Pulse Ox 94% on R/A; aa5 10:30 BP 143 / 62; Pulse 58; Resp 16 S; Pulse Ox 95% on R/A; aa5 11:30 BP 145 / 68; Pulse 60; Resp 18 S; Pulse Ox 96% on R/A; aa5 12:20 BP 143 / 69; Pulse 60; Resp 16 S; Temp 98.0(TE); Pulse Ox 96% on R/A; aa5 Lisa Coma Score: 07:05 Eye Response: spontaneous(4). Verbal Response: oriented(5). Motor Response: obeys aa5 commands(6). Total: 15. Trauma Score (Adult): 07:05 Eye Response: spontaneous(1); Verbal Response: oriented(1); Motor Response: obeys aa5 commands(2); Systolic BP: > 89 mm Hg(4); Respiratory Rate: 10 to 29 per min(4); Lisa Score: 15; Trauma Score: 12 07:39 Eye Response: spontaneous(1); Verbal Response: oriented(1); Motor Response: obeys aa5 commands(2); Systolic BP: > 89 mm Hg(4); Respiratory Rate: 10 to 29 per min(4); Lisa Score: 15; Trauma Score: 12 08:30 Eye Response: spontaneous(1); Verbal Response: oriented(1); Motor Response: obeys aa5 commands(2); Systolic BP: > 89 mm Hg(4); Respiratory Rate: 10 to 29 per min(4); [place] Score: 15; Trauma Score: 12 09:30 Eye Response: spontaneous(1); Verbal Response: oriented(1); Motor Response: obeys aa5 commands(2); Systolic BP: > 89 mm Hg(4); Respiratory Rate: 10 to 29 per min(4); Lisa Score: 15; Trauma Score: 12 10:30 Eye Response: spontaneous(1); Verbal Response: oriented(1); Motor Response: obeys aa5 commands(2); Systolic BP: > 89 mm Hg(4); Respiratory Rate: 10 to 29 per min(4); [place] Score: 15; Trauma Score: 12 11:30 Eye Response: spontaneous(1); Verbal Response: oriented(1); Motor Response: obeys aa5 commands(2); Systolic BP: > 89 mm Hg(4); Respiratory Rate: 10 to 29 per min(4); [place] Score: 15; Trauma Score: 12 12:20 Eye Response: spontaneous(1); Verbal Response: oriented(1); Motor Response: obeys aa5 commands(2); Systolic BP: > 89 mm Hg(4); Respiratory Rate: 10 to 29 per min(4); [place] Score: 15; Trauma Score: 12 Laceration: 09:06 Wound Repair of 4cm ( 1.6in ) subcutaneous laceration to scalp. Irregularly shaped.. pm1 Distal neuro/vascular/tendon intact. Anesthesia: Local anesthetic administered with 2 mls of 1% lidocaine w/ Epi. Wound prep: Extensive cleansing with hibiclenz by nurse by me, Wound irrigation with saline by me, Wound explored extensively, Copious irrigation. Skin closed with 8 1-0 Kely using staple gun. Dressed with 4x4's, Kerlix. Patient tolerated well. MDM: 07:06 Patient medically screened. pm1 09:07 Data reviewed: vital signs. Data interpreted: Pulse oximetry: on room air is 97 %. pm1 Interpretation: normal. Counseling: I had a detailed discussion with the patient and/or guardian regarding: the historical points, exam findings, and any diagnostic results supporting the discharge/admit diagnosis, radiology results, the need for outpatient follow up, to return to the emergency department if symptoms worsen or persist or if there are any questions or concerns that arise at home. 02/26 07:06 Order name: CT Head C Spine; Complete Time: 08:40 pm1 02/26 09:39 Order name: Ribs Left XRAY; Complete Time: 11:49 pm1 02/26 09:39 Order name: Chest Single View XRAY; Complete Time: 11:49 pm1 02/26 11:50 Order name: INCENTIVE SPIROMETRY pm1 Administered Medications: 09:00 Drug: Lidocaine-Epinephrine -1%: (1:100,000) 1 vials {Note: administered by jennifer Mcconnell AP OPERATOR during laceration repair. .} Volume: 20 ml; Route: Infiltration; 12:25 Drug: traMADol 50 mg Route: PO; aa5 12:25 Follow up: Response: Medication administered at discharge. aa5 Disposition: 15:02 Co-signature as Attending Physician, Doug Medina MD I agree with the assessment and genesis plan of care. Disposition: 02/26/19 09:08 Discharged to Home. Impression: Laceration without foreign body of scalp, Superficial injury of head, Fracture of one rib, left side. - Condition is Stable. - Discharge Instructions: Head Injury, Adult, Laceration Care, Adult, Rib Fracture, Stitches, [place], or Adhesive Wound Closure, Incentive Spirometer. - Prescriptions for Tramadol 50 mg Oral Tablet - take 1 tablet by ORAL route every 8 hours As needed as needed; 20 tablet. - Medication Reconciliation Form, Thank You Letter, Antibiotic Education, Prescription Opioid Use form. - Follow up: Emergency Department; When: As needed; Reason: Worsening of condition. Follow up: Private Physician; When: 10 - 14 days; Reason: Recheck today's complaints, Continuance of care, Staple/Suture removal, Re-evaluation by your physician. - Problem is new. - Symptoms have improved. Signatures: Dispatcher [employer] EDMS Doug Medina MD MD cha Calderon, Audri, RN RN aa5 Carlos Eduardo Lambert, AP OPERATOR AP OPERATOR pm1 Corrections: (The following items were deleted from the chart) 11:52 09:08 02/26/2019 09:08 Discharged to Home. Impression: Laceration without foreign body pm1 of scalp; Superficial injury of head. Condition is Stable. Forms are Medication Reconciliation Form, Thank You Letter, Antibiotic Education, Prescription Opioid Use. Follow up: Emergency Department; When: As needed; Reason: Worsening of condition. Follow up: Private Physician; When: 10 - 14 days; Reason: Recheck today's complaints, Continuance of care, Staple/Suture removal, Re-evaluation by your physician. Problem is new. Symptoms have improved. pm1 12:36 11:52 02/26/2019 09:08 Discharged to Home. Impression: Laceration without foreign body aa5 of scalp; Superficial injury of head; Fracture of one rib, left side. Condition is Stable. Discharge Instructions: Head Injury, Adult, Laceration Care, Adult, Stitches, [place], or Adhesive Wound Closure. Forms are Medication Reconciliation Form, Thank You Letter, Antibiotic Education, Prescription Opioid Use. Follow up: Emergency Department; When: As needed; Reason: Worsening of condition. Follow up: Private Physician; When: 10 - 14 days; Reason: Recheck today's complaints, Continuance of care, Staple/Suture removal, Re-evaluation by your physician. Problem is new. Symptoms have improved. pm1
--- NOTE | 2019-02-26 11:41 | RAD REPORT ---
EXAM DESCRIPTION: RAD - Ribs Left - 02/26/2019 11:32 am CLINICAL HISTORY: PAIN Fall, left rib pain COMPARISON: Chest Single View dated 11/17/2017 FINDINGS: Minimally displaced fracture is seen involving the lateral ninth rib. No additional fractu re is seen.
--- NOTE | 2019-02-26 11:43 | RAD REPORT ---
EXAM DESCRIPTION: RAD - Chest Single View - 02/26/2019 11:31 am CLINICAL HISTORY: left lower anterior rib pain, fall injury Chest pain. COMPARISON: Chest Single View dated 11/17/2017; Chest Pa And Lat (2 Views) dated 06/27/2016; Chest Pa A nd Lat (2 Views) dated 06/20/2016; CHEST SINGLE VIEW dated 07/27/2015 FINDINGS: Portable technique limits examination quality. Mild interstitial pulmonary edema suspected. No pneumothorax The heart is moderately enlarged in size . Minimally displaced fracture left lateral ninth rib.
== END 2019-02-26 12:36 | disposition home or self-care (01) ==
LOC: ER 06:58
PROC: 0JQ00ZZ Repair Scalp Subcutaneous Tissue and Fascia, Open Approach (ICD-10-PCS; principal; 2019-02-26)
DX: S01.01XA Laceration without foreign body of scalp, initial encounter (principal); S22.32XA Fracture of one rib, left side, initial encounter for closed fracture; W18.2XXA Fall in (into) shower or empty bathtub, initial encounter; F41.9 Anxiety disorder, unspecified; F03.90 Unspecified dementia, unspecified severity, without behavioral disturbance, psychotic disturbance, mood disturbance, and anxiety; E11.9 Type 2 diabetes mellitus without complications; E78.00 Pure hypercholesterolemia, unspecified; E03.9 Hypothyroidism, unspecified; I10 Essential (primary) hypertension; K21.9 Gastro-esophageal reflux disease without esophagitis; Z79.84 Long term (current) use of oral hypoglycemic drugs; Z79.82 Long term (current) use of aspirin; Z79.899 Other long term (current) drug therapy; Z88.5 Allergy status to narcotic agent; Z88.2 Allergy status to sulfonamides
CPT/HCPCS: 70450; 71045; 72125; 99285

== ENCOUNTER 2019-03-04 16:52 | Emergency (ER) | payer OTHER ==
--- NOTE | 2019-03-04 18:12 | RAD REPORT ---
EXAM DESCRIPTION: CT - [id number] - 03/04/2019 5:52 pm CLINICAL HISTORY: Trauma, head and neck injury. PAIN COMPARISON: Head C Spine Mpr Wo Con dated 02/26/2019; Head C Spine Mpr Wo Con dated 09/27/2018; Head C Spine Mpr Wo Con dated 04/06/2018; Head C Spine Mpr Wo Con dated 09/09/2016 TECHNIQUE: Axial 5 mm thick images of the head were obtained. Axial 2 mm thick images of the cervical spine were obtained with sagittal and coronal reconstruction images generated and reviewed. All CT scans are performed using dose optimization technique as appropriate and may include automated exposure control or mA/KV adjustment according to patient size. FINDINGS: CT HEAD WITHOUT CONTRAST: No acute hemorrhage, hydrocephalus or extra-axial collection is identified.Moderate generalized brain atrophy is present with mild periventricular and deep white matter chronic microvascular ischemic ch anges.No areas of brain edema or midline shift. The paranasal sinuses and mastoids are clear.Left frontal scalp hematoma is seen.The calvarium is int act. CT CERVICAL SPINE WITHOUT CONTRAST: No fracture or subluxation.Mild spondylosis involves mid and lower cervical spine.No prevertebral sof t tissues swelling is identified. IMPRESSION: No acute intracranial or cervical spine findings.
--- NOTE | 2019-03-04 18:13 | RAD REPORT ---
EXAM DESCRIPTION: CT - CTFB CLINICAL HISTORY: Pain;Swelling;Trauma COMPARISON: Facial Bones W/ Mpr dated 04/15/2016; MAXILLOFACIAL W O CONTRAST dated 09/08/2014 TECHNIQUE: Axial 2 mm thick images of the face were obtained with sagittal and coronal reconstructio n images. All CT scans are performed using dose optimization technique as appropriate and may include automated exposure control or mA/KV adjustment according to patient size. FINDINGS: No acute facial bone fracture is seen.The mandible is intact. Prominent left supraorbital soft tissue swelling. The globes and orbital contents are grossly unremarkable.The paranasal sinuses and mastoids are clear . IMPRESSION: Negative for facial bone fracture.
--- NOTE | 2019-03-04 18:15 | RAD REPORT ---
EXAM DESCRIPTION: RAD - Sacrum And Coccyx - 03/04/2019 5:40 pm CLINICAL HISTORY: PAIN Fall, trauma, pain COMPARISON: Lumbar Spine 3 Views dated 06/20/2016 FINDINGS: Diffuse osteopenia is seen. No fracture is appreciated.
--- NOTE | 2019-03-04 18:16 | RAD REPORT ---
EXAM DESCRIPTION: RAD - Hand Left 3 View - 03/04/2019 5:39 pm CLINICAL HISTORY: PAIN Trauma, pain COMPARISON: No comparisons FINDINGS: Diffuse osteopenia is seen. Prominent first carpometacarpal joint arthritic changes are pr esent. No acute fracture or dislocation evident.
--- NOTE | 2019-03-04 18:18 | RAD REPORT ---
EXAM DESCRIPTION: RAD - Hand Right 3 View - 03/04/2019 5:40 pm CLINICAL HISTORY: PAIN Fall, pain COMPARISON: Hand Right 3 View dated 03/06/2015 FINDINGS: Small bony avulsion is possible at the base of the first metatarsal. Degenerative changes involve the first carpometacarpal joint. The bones are demineralized. No acute fracture or dislocatio n otherwise noted.
--- NOTE | 2019-03-04 18:39 | ER ---
Nurse's Notes [facility] Name: Argenis Wayne Age: 83 yrs Sex: Female : 1935 Arrival Date: 03/04/2019 Time: 16:57 Bed 14 Private MD: Diagnosis: Avulsion fracture base of right first metatarsal;Contusion of other part of head-Left supraorbital contusion Presentation: 03/04 16:57 Presenting complaint: EMS states: pt fell from standing position while trying to get up sg using a walker, pt hit the left side of her forehead and left side of face, reports pain in the right wrist and left hand as well, denies LOC. Care prior to arrival: None. Mechanism of Injury: Fall from standing position. Trauma event details: Injury occurred in the [facility], Injury occurred: in an institution. Injury occurred: March 04, 2019. 16:57 Method Of Arrival: EMS: [facility] sg 16:57 Acuity: IVAN 4 sg 17:30 Transition of care: patient was not received from another setting of care. Onset of sg symptoms was March 04, 2019. Risk Assessment: Do you want to hurt yourself or someone else? Patient reports no desire to harm self or others. Initial Sepsis Screen: Does the patient meet any 2 criteria? No. Patient's initial sepsis screen is negative. Does the patient have a suspected source of infection? No. Patient's initial sepsis screen is negative. Trauma Activation: Not Applicable Physician: ED Physician; Name: ; Notified At: ; Arrived At: Physician: General Surgeon; Name: ; Notified At: ; Arrived At: Physician: Radiology; Name: ; Notified At: ; Arrived At: Physician: Respiratory; Name: ; Notified At: ; Arrived At: Physician: Lab; Name: ; Notified At: ; Arrived At: Historical: - Allergies: 17:01 atorvastatin; sg 17:01 Codeine; sg 17:01 Hydrocodone-Acetaminophen; sg 17:01 PROPOXYPHENE; sg 17:01 Sulfa (Sulfonamide Antibiotics); sg 17:03 atorvastatin; iw 17:03 Codeine; iw 17:03 Hydrocodone-Acetaminophen; iw 17:03 PROPOXYPHENE; iw 17:03 Sulfa (Sulfonamide Antibiotics); iw - Home Meds: 17:03 amlodipine 5 mg tab 1 tab once daily [Active]; [place] Thyroid 60 mg Oral tab daily for iw Hypothyroidism [Active]; aspirin 81 mg Oral TbEC 1 tab once daily for Myocardial Infarction Prevention [Active]; carvedilol 3.125 mg Oral tab 1 tab 2 times per day for Hypertension [Active]; digoxin 125 mcg Oral tab 1 tab once daily [Active]; donepezil 10 mg Oral tab 1 tab once daily [Active]; Januvia 100 mg Oral tab 1 tab once daily [Active]; memantine 10 mg Oral tab 2 times per day [Active]; metformin 1,000 mg Oral tab 1 tab 2 times per day [Active]; naproxen sodium 500 mg Oral TM24 1 tabs twice a day [Active]; cranberry 500 mg oral cap daily [Active]; nitrofurantoin macrocrystal 50 mg Oral cap once daily [Active]; olanzapine 2.5 mg oral tab 1 tabs once daily [Active]; pantoprazole 40 mg Oral TbEC 1 tab once daily [Active]; Restasis 0.05 % ophthalmic dpet 1 drop 2 times per day [Active]; sertraline 100 mg oral tab 1.5 tabs once daily [Active]; simvastatin 40 mg Oral tab 1 tab once daily [Active]; tramadol 50 mg Oral tab 1 tab every 6 hours [Active]; Vitamin B-12 Oral daily [Active]; loperamide 2 mg Oral tab as needed [Active]; Vitamin D Oral daily [Active]; - PMHx: 17:01 Anxiety; CAD; CVA; Dementia; Diabetes - NIDDM; GERD; High Cholesterol; Hypertension; sg Hypothyroidism; 17:03 Anxiety; CAD; CVA; Dementia; Diabetes - NIDDM; GERD; High Cholesterol; Hypertension; iw Hypothyroidism; - Immunization history: Last tetanus immunization: - up to date. - Social history:: Smoking status: . - Ebola Screening: : Patient negative for fever greater than or equal to 101.5 degrees Fahrenheit, and additional compatible Ebola Virus Disease symptoms Patient denies exposure to infectious person Patient denies travel to an Ebola-affected area in the 21 days before illness onset No symptoms or risks identified at this time. Screenin:03 Abuse screen: Denies threats or abuse. Denies injuries from another. Tuberculosis sg screening: No symptoms or risk factors identified. 17:10 Nutritional screening: No deficits noted. Fall Risk None identified. Primary Survey: 16:59 NO uncontrolled hemorrhage observed. A: The patient is alert. Airway: patent, No sg supplemental oxygen in use on arrival. Oral cavity: clear. Breathing/Chest: Respiratory pattern: regular, Respiratory effort: spontaneous, unlabored, Breath sounds: clear, bilaterally. Chest inspection: symmetrical rise and fall of the chest. Circulation: Heart tones present. Skin color: pink. Disability Alert. Exposure/Environment: All clothing and personal items were removed. Forensic evidence collection is not deemed to be indicated at this time. Items placed in patient belonging bag. Obvious injury(ies) are noted at this time: to left eyebrow, left forehead, right wrist and left hand A warming method has been applied: A warm blanket has been provided to the patient. Assessment: 17:00 General: Appears in no apparent distress. well groomed, well developed, well nourished, sg Behavior is calm, cooperative, appropriate for age. Pain: Complains of pain in face and right wrist and left hand and right hand Quality of pain is described as tender. Neuro: Level of Consciousness is awake, alert, obeys commands, Oriented to person, place, time, situation, Speech is normal, Facial symmetry appears normal. Cardiovascular: Patient's skin is warm and dry. Chest pain is denied. Respiratory: Airway is patent Respiratory effort is even, unlabored, Respiratory pattern is regular, symmetrical. GI: No signs and/or symptoms were reported involving the gastrointestinal system. : No signs and/or symptoms were reported regarding the genitourinary system. EENT: Nares are clear bilaterally Oral mucosa is moist. Throat is pink. Derm: Skin is pink, warm \T\ dry. Bruising that is green, yellow, on left eye. 18:12 Reassessment: family at bedside at this time, awaiting results at this time. sg Vital Signs: 17:02 BP 155 / 60; Pulse 63; Resp 17; Temp 97.2; Pulse Ox 96% on R/A; Weight 63.5 kg; Height sg 5 ft. 3 in. (160.02 cm); Pain 4/10; 18:00 BP 142 / 62; Pulse 66; Resp 18; Pulse Ox 100% on R/A; Pain 3/10; sg 19:00 BP 138 / 70; Pulse 66; Resp 17; Pulse Ox 100% on R/A; sg 17:02 Body Mass Index 24.80 (63.50 kg, 160.02 cm) sg [place] Coma Score: 17:02 Eye Response: spontaneous(4). Verbal Response: oriented(5). Motor Response: obeys sg commands(6). Total: 15. 18:00 Eye Response: spontaneous(4). Verbal Response: oriented(5). Motor Response: obeys sg commands(6). Total: 15. 19:00 Eye Response: spontaneous(4). Verbal Response: oriented(5). Motor Response: obeys sg commands(6). Total: 15. Trauma Score (Adult): 17:02 Eye Response: spontaneous(1); Verbal Response: oriented(1); Motor Response: obeys sg commands(2); Systolic BP: > 89 mm Hg(4); Respiratory Rate: 10 to 29 per min(4); Lisa Score: 15; Trauma Score: 12 18:00 Eye Response: spontaneous(1); Verbal Response: oriented(1); Motor Response: obeys sg commands(2); Systolic BP: > 89 mm Hg(4); Respiratory Rate: 10 to 29 per min(4); [place] Score: 15; Trauma Score: 12 19:00 Eye Response: spontaneous(1); Verbal Response: oriented(1); Motor Response: obeys sg commands(2); Systolic BP: > 89 mm Hg(4); Respiratory Rate: 10 to 29 per min(4); Lisa Score: 15; Trauma Score: 12 ED Course: 16:57 Patient arrived in ED. sg 16:59 Triage completed. sg 17:00 No provider procedures requiring assistance completed. sg 17:00 Arm band placed on right wrist. sg 17:02 Carlos Eduardo Lambert NP is PHCP. pm1 17:02 Eduardo Mcmullen MD is Attending Physician. pm1 17:10 Patient has correct armband on for positive identification. Bed in low position. Call light in reach. Side rails up X2. utility sales and service manager on. Pulse ox on. NIBP on. 17:13 Bharat Garcia, RN is Primary Nurse. sg 17:40 Hand Right 3 View XRAY In Process Unspecified. EDMS 17:40 Hand Left 3 View XRAY In Process Unspecified. EDMS 17:40 Sacrum And Coccyx XRAY In Process Unspecified. EDMS 17:40 Ice pack to injury. Cool cloth applied. sg 17:51 CT completed. Patient tolerated procedure well. Patient moved to CT. Patient moved back mn from CT. 17:52 CT Head C Spine In Process Unspecified. EDMS 17:52 CT Facial Bones W/O Con In Process Unspecified. EDMS 19:00 Velcro wrist splint applied to right wrist. dh3 19:00 Patient did not have IV access during this emergency room visit. sg Administered Medications: 18:40 Drug: traMADol 50 mg Route: PO; iw Intake: 17:02 PO: 0ml; Total: 0ml. sg Outcome: 18:38 Discharge ordered by MD. pm1 19:10 Discharged to [facility]. pt family on phone speaking with staff at [facility] 19:10 Condition: good 19:10 Discharge instructions given to family, cooky packer, Instructed on discharge instructions, follow up and referral plans. safety practices, wound care, Demonstrated understanding of instructions, follow-up care, wound care. 19:21 Patient left the ED. sg Signatures: Dispatcher [employer] Bharat Olea, RN RN Piper Pacheco RN RN Carlos Eduardo Lambert, KATIA DATA CONVERSION DEVELOPER pm1 Mario Glez Deanna 3
--- NOTE | 2019-03-04 18:39 | EDPHYS ---
Physician Documentation [facility] Name: Argenis Wayne Age: 83 yrs Sex: Female : 1935 Arrival Date: 03/04/2019 Time: 16:57 Bed 14 Private MD: ED Physician Eduardo Mcmullen HPI: 03/04 17:16 This 83 yrs old Female presents to ER via EMS with complaints of Fall Injury. pm1 17:16 Details of fall: The patient fell from an upright position, while walking, and struck a pm1 carpeted surface. Associated injuries: The patient sustained injury to the head, contusion, swelling, left side of forehead, sacral area, pain, right hand and left hand, pain. 17:16 Onset: The symptoms/episode began/occurred just prior to arrival. The patient has not pm1 experienced similar symptoms in the past. The patient has been recently seen by a physician: 1 week(s) ago, with different complaint(s), Fall injury in the bathroom resulting in head laceration and 1 left rib fracture. Patient without LOC. Historical: - Allergies: 17:01 atorvastatin; sg 17:01 Codeine; sg 17:01 Hydrocodone-Acetaminophen; sg 17:01 PROPOXYPHENE; sg 17:01 Sulfa (Sulfonamide Antibiotics); sg 17:03 atorvastatin; iw 17:03 Codeine; iw 17:03 Hydrocodone-Acetaminophen; iw 17:03 PROPOXYPHENE; iw 17:03 Sulfa (Sulfonamide Antibiotics); iw - Home Meds: 17:03 amlodipine 5 mg tab 1 tab once daily [Active]; [place] Thyroid 60 mg Oral tab daily for iw Hypothyroidism [Active]; aspirin 81 mg Oral TbEC 1 tab once daily for Myocardial Infarction Prevention [Active]; carvedilol 3.125 mg Oral tab 1 tab 2 times per day for Hypertension [Active]; digoxin 125 mcg Oral tab 1 tab once daily [Active]; donepezil 10 mg Oral tab 1 tab once daily [Active]; Januvia 100 mg Oral tab 1 tab once daily [Active]; memantine 10 mg Oral tab 2 times per day [Active]; metformin 1,000 mg Oral tab 1 tab 2 times per day [Active]; naproxen sodium 500 mg Oral TM24 1 tabs twice a day [Active]; cranberry 500 mg oral cap daily [Active]; nitrofurantoin macrocrystal 50 mg Oral cap once daily [Active]; olanzapine 2.5 mg oral tab 1 tabs once daily [Active]; pantoprazole 40 mg Oral TbEC 1 tab once daily [Active]; Restasis 0.05 % ophthalmic dpet 1 drop 2 times per day [Active]; sertraline 100 mg oral tab 1.5 tabs once daily [Active]; simvastatin 40 mg Oral tab 1 tab once daily [Active]; tramadol 50 mg Oral tab 1 tab every 6 hours [Active]; Vitamin B-12 Oral daily [Active]; loperamide 2 mg Oral tab as needed [Active]; Vitamin D Oral daily [Active]; - PMHx: 17:01 Anxiety; CAD; CVA; Dementia; Diabetes - NIDDM; GERD; High Cholesterol; Hypertension; sg Hypothyroidism; 17:03 Anxiety; CAD; CVA; Dementia; Diabetes - NIDDM; GERD; High Cholesterol; Hypertension; iw Hypothyroidism; - Immunization history: Last tetanus immunization: - up to date. - Social history:: Smoking status: . - Ebola Screening: : Patient negative for fever greater than or equal to 101.5 degrees Fahrenheit, and additional compatible Ebola Virus Disease symptoms Patient denies exposure to infectious person Patient denies travel to an Ebola-affected area in the 21 days before illness onset No symptoms or risks identified at this time. ROS: 17:16 Constitutional: Negative for fever, chills, and weight loss, Eyes: Negative for injury, pm1 pain, redness, and discharge, ENT: Negative for injury, pain, and discharge, Neck: Negative for injury, pain, and swelling, Cardiovascular: Negative for chest pain, palpitations, and edema, Respiratory: Negative for shortness of breath, cough, wheezing, and pleuritic chest pain, Abdomen/GI: Negative for abdominal pain, nausea, vomiting, diarrhea, and constipation, : Negative for injury, bleeding, discharge, and swelling. 17:16 Skin: Negative for injury, rash, and discoloration. 17:16 Back: Positive for of the sacrum, pain. 17:16 MS/extremity: Positive for contusion, pain, of the right hand and left hand. 17:16 Neuro: Positive for headache, contusion to left side of forehead. Exam: 17:16 Constitutional: This is a well developed, well nourished patient who is awake, alert, pm1 and in no acute distress. 17:16 Eyes: Pupils equal round and reactive to light, extra-ocular motions intact. Lids and lashes normal. Conjunctiva and sclera are non-icteric and not injected. Cornea within normal limits. Periorbital areas with no swelling, redness, or edema. ENT: Nares patent. No nasal discharge, no septal abnormalities noted. Tympanic membranes are normal and external auditory canals are clear. Oropharynx with no redness, swelling, or masses, exudates, or evidence of obstruction, uvula midline. Mucous membranes moist. Neck: Trachea midline, no thyromegaly or masses palpated, and no cervical lymphadenopathy. Supple, full range of motion without nuchal rigidity, or vertebral point tenderness. No Meningismus. Chest/axilla: Normal chest wall appearance and motion. Nontender with no deformity. No lesions are appreciated. Cardiovascular: Regular rate and rhythm with a normal S1 and S2. No gallops, murmurs, or rubs. Normal PMI, no JVD. No pulse deficits. Respiratory: Lungs have equal breath sounds bilaterally, clear to auscultation and percussion. No rales, rhonchi or wheezes noted. No increased work of breathing, no retractions or nasal flaring. Abdomen/GI: Soft, non-tender, with normal bowel sounds. No distension or tympany. No guarding or rebound. No evidence of tenderness throughout. Back: No spinal tenderness. No costovertebral tenderness. Full range of motion. 17:16 Head/face: Exam is negative for mora signs, raccoon eyes, Noted is no obvious of injury or deformity except contusion, that is superficial, of the left eye. 17:16 Skin: Appearance: normal except for affected area, injury, contusion(s), that are superficial, of the right hand and left hand. 17:16 Neuro: Orientation: is normal, Motor: is normal, moves all fours. Vital Signs: 17:02 BP 155 / 60; Pulse 63; Resp 17; Temp 97.2; Pulse Ox 96% on R/A; Weight 63.5 kg; Height sg 5 ft. 3 in. (160.02 cm); Pain 4/10; 18:00 BP 142 / 62; Pulse 66; Resp 18; Pulse Ox 100% on R/A; Pain 3/10; sg 19:00 BP 138 / 70; Pulse 66; Resp 17; Pulse Ox 100% on R/A; sg 17:02 Body Mass Index 24.80 (63.50 kg, 160.02 cm) [place] Coma Score: 17:02 Eye Response: spontaneous(4). Verbal Response: oriented(5). Motor Response: obeys sg commands(6). Total: 15. 18:00 Eye Response: spontaneous(4). Verbal Response: oriented(5). Motor Response: obeys sg commands(6). Total: 15. 19:00 Eye Response: spontaneous(4). Verbal Response: oriented(5). Motor Response: obeys sg commands(6). Total: 15. Trauma Score (Adult): 17:02 Eye Response: spontaneous(1); Verbal Response: oriented(1); Motor Response: obeys sg commands(2); Systolic BP: > 89 mm Hg(4); Respiratory Rate: 10 to 29 per min(4); Lisa Score: 15; Trauma Score: 12 18:00 Eye Response: spontaneous(1); Verbal Response: oriented(1); Motor Response: obeys sg commands(2); Systolic BP: > 89 mm Hg(4); Respiratory Rate: 10 to 29 per min(4); Lisa Score: 15; Trauma Score: 12 19:00 Eye Response: spontaneous(1); Verbal Response: oriented(1); Motor Response: obeys sg commands(2); Systolic BP: > 89 mm Hg(4); Respiratory Rate: 10 to 29 per min(4); [place] Score: 15; Trauma Score: 12 MDM: 17:02 Patient medically screened. pm1 18:35 Data reviewed: vital signs. Data interpreted: Pulse oximetry: on room air is 96 %. pm1 Interpretation: normal. Counseling: I had a detailed discussion with the patient and/or guardian regarding: the historical points, exam findings, and any diagnostic results supporting the discharge/admit diagnosis, radiology results, the need for outpatient follow up, to return to the emergency department if symptoms worsen or persist or if there are any questions or concerns that arise at home. 03/04 17:08 Order name: CT Head C Spine; Complete Time: 18:25 pm1 03/04 17:08 Order name: CT Facial Bones W/O Con; Complete Time: 18:25 pm1 03/04 17:08 Order name: Hand Right 3 View XRAY; Complete Time: 18:25 pm1 03/04 17:08 Order name: Hand Left 3 View XRAY; Complete Time: 18:25 pm1 03/04 17:08 Order name: Sacrum And Coccyx XRAY; Complete Time: 18:25 pm1 03/04 18:34 Order name: [place] Wrist Splint pm1 Administered Medications: 18:40 Drug: traMADol 50 mg Route: PO; iw Disposition: 03/05 09:26 Co-signature as Attending Physician, Eduardo Mcmullen MD. Disposition: 03/04/19 18:38 Discharged to Home. Impression: Contusion of other part of head - Left supraorbital contusion, Avulsion fracture base of right first metatarsal. - Condition is Stable. - Discharge Instructions: Avulsion Fracture of the Hand, Contusion, Facial or Scalp Contusion, [id number]. - Medication Reconciliation Form, Thank You Letter, Antibiotic Education, Prescription Opioid Use form. - Follow up: Emergency Department; When: As needed; Reason: Worsening of condition. Follow up: Private Physician; When: 2 - 3 days; Reason: Recheck today's complaints, Continuance of care, Re-evaluation by your physician. - Problem is new. - Symptoms have improved. Signatures: Dispatcher [employer] EDMS Bharat Garcia RN RN Piper Perez RN RN Carlos Eduardo Lambert, BRICK CARRIER BRICK CARRIER pm1 Eduardo Mcmullen MD MD Corrections: (The following items were deleted from the chart) 03/04 19:21 18:38 03/04/2019 18:38 Discharged to Home. Impression: Contusion of other part of head sg - Left supraorbital contusionAvulsion fracture base of right first metatarsal. Condition is Stable. Forms are Medication Reconciliation Form, Thank You Letter, Antibiotic Education, Prescription Opioid Use. Follow up: Emergency Department; When: As needed; Reason: Worsening of condition. Follow up: Private Physician; When: 2 - 3 days; Reason: Recheck today's complaints, Continuance of care, Re-evaluation by your physician. Problem is new. Symptoms have improved. pm1
[2019-03-04] MEDS ORDERED: TRAMADOL HCL 50 MG TAB ONE (18:53)
== END 2019-03-04 19:21 | disposition home or self-care (01) ==
LOC: ER 16:52
DX: S00.93XA Contusion of unspecified part of head, initial encounter (principal); S92.311A Displaced fracture of first metatarsal bone, right foot, initial encounter for closed fracture; W18.30XA Fall on same level, unspecified, initial encounter; Y93.89 Activity, other specified; I10 Essential (primary) hypertension; E11.9 Type 2 diabetes mellitus without complications; K21.9 Gastro-esophageal reflux disease without esophagitis; E78.00 Pure hypercholesterolemia, unspecified; E03.9 Hypothyroidism, unspecified; Z88.6 Allergy status to analgesic agent; Z88.2 Allergy status to sulfonamides
CPT/HCPCS: 70450; 70486; 72125; 72220; 76377; 99285

== ENCOUNTER 2019-03-07 00:15 | Emergency (ER) | payer OTHER ==
[2019-03-07 00:47] LABS: Absolute Lymphocytes (CBC) 2.4 K/uL (0.7-4.9); Absolute Monocytes 0.8 K/uL (0.1-1.3); Absolute Neutrophil 5.4 K/uL (1.8-8.0); Basophils % 0.7 % (0-1.3); Eosinophils % 3.8 % (0-4.4); Hematocrit 27.7 % (36.0-45.0); Lymphocytes % 26.4 % (15.3-44.8); MPV 7.6 fL (7.6-11.3); Monocytes % 9.2 % (3.3-12.3); RBC Red Blood Cell Count 4.04 M/uL (3.86-4.86)
[2019-03-07] MEDS ORDERED: ONDANSETRON 4 MG/2 ML VIAL ONE (00:53)
[2019-03-07 01:06] LABS: ALT/SGPT 22 U/L (12-78); AST/SGOT 20 U/L (15-37); Albumin 3.5 g/dL (3.4-5.0); Alkaline Phosphatase 78 U/L (45-117); BUN Blood Urea Nitrogen 17 mg/dL (7-18); Bicarbonate 21 mmol/L (21-32); Bilirubin Direct < 0.1 mg/dL (0-0.2); Bilirubin Total 0.3 mg/dL (0.2-1.0); Glucose Level 139 mg/dL (74-106); Lipase 416 U/L (73-393); Potassium 4.1 mmol/L (3.5-5.1); Protein, Total 7.4 g/dL (6.4-8.2); Sodium Level 140 mmol/L (136-145)
[2019-03-07 01:22] LABS: Anisocytosis 1+; Blood Morphology Comment NOTED (NOT SEEN); Platelet Estimate ADEQ; Urine White Blood Cell Casts OK
[2019-03-07 02:12] LABS: Urine Glucose NEGATIVE (NEG); Urine Specific Gravity 1.015 (1.005-1.030)
[2019-03-07 02:13] LABS: Urine Blood NEGATIVE (NEG); Urine Protein NEGATIVE (NEG); Urine pH 5.5 (5.0-7.0)
--- NOTE | 2019-03-07 02:50 | EDPHYS ---
Physician Documentation [facility] Name: Argenis Wayne Age: 83 yrs Sex: Female : 1935 Arrival Date: 03/07/2019 Time: 00:22 Bed 8 Private MD: ED Physician Michel Singleton HPI: 03/07 02:15 This 83 yrs old Female presents to ER via EMS with complaints of kb Nausea/Vomiting. 02:15 The patient presents to the emergency department with nausea, vomiting. Onset: The kb symptoms/episode began/occurred 2 day(s) ago. Possible causes: recent fall. The symptoms are aggravated by nothing. The symptoms are alleviated by nothing. Associated signs and symptoms: Pertinent positives: nausea, vomiting, Pertinent negatives: diarrhea, fever. Severity of symptoms: At their worst the symptoms were mild in the emergency department the symptoms are unchanged. The patient has not experienced similar symptoms in the past. The patient has not recently seen a physician. Caregiver reports pt started spitting yesterday and today it has been more vomiting. States she has to lean over instead of spitting in a napkin now. States she had two falls this month and was seen here after each one, but the home health nurse told her she should get checked again for a concussion. . Historical: - Allergies: 00:32 Sulfa (Sulfonamide Antibiotics); ak1 00:32 PROPOXYPHENE; ak1 00:32 Hydrocodone-Acetaminophen; ak1 00:32 Codeine; ak1 00:32 atorvastatin; ak1 - Home Meds: 00:32 amlodipine 5 mg tab 1 tab once daily [Active]; [place] Thyroid 60 mg Oral tab daily for ak1 Hypothyroidism [Active]; aspirin 81 mg Oral TbEC 1 tab once daily for Myocardial Infarction Prevention [Active]; carvedilol 3.125 mg Oral tab 1 tab 2 times per day for Hypertension [Active]; Centrum Silver Oral daily [Active]; cranberry 500 mg Oral cap daily [Active]; digoxin 125 mcg Oral tab 1 tab once daily [Active]; donepezil 10 mg Oral tab 1 tab once daily [Active]; Invokamet 150-1,000 mg Oral tab 1 tab 2 times per day [Active]; Januvia 100 mg Oral tab 1 tab once daily [Active]; loperamide 2 mg Oral tab as needed [Active]; memantine 10 mg Oral tab 2 times per day [Active]; metformin 1,000 mg Oral tab 1 tab 2 times per day [Active]; naproxen sodium 500 mg Oral TM24 1 tabs twice a day [Active]; nitrofurantoin macrocrystal 50 mg Oral cap once daily [Active]; olanzapine 2.5 mg Oral tab 1 tabs once daily [Active]; olanzapine 2.5 mg Oral tab once daily [Active]; olanzapine 2.5 mg Oral tab 1 tabs once daily [Active]; pantoprazole 40 mg Oral TbEC 1 tab once daily [Active]; Restasis 0.05 % ophthalmic dpet 1 drop 2 times per day [Active]; sertraline 100 mg Oral tab 1.5 tabs once daily [Active]; simvastatin 40 mg Oral tab 1 tab once daily [Active]; tramadol 50 mg Oral tab 1 tab every 6 hours [Active]; Vitamin B-12 1,000 mcg Oral TbER 2000 mcg daily [Active]; Vitamin D3 1,000 unit Oral cap daily [Active]; Vitamin B-12 Oral daily [Active]; Vitamin D Oral 1000 unit daily [Active]; Vitamin D Oral daily [Active]; sertraline 100 mg Oral tab 1.5 tabs once daily [Active]; Restasis 0.05 % ophthalmic dpet 1 drop 2 times per day [Active]; pantoprazole 40 mg Oral TbEC 1 tab once daily [Active]; - PMHx: 00:32 Anxiety; CAD; CVA; Dementia; Diabetes - NIDDM; GERD; High Cholesterol; Hypertension; ak1 Hypothyroidism; - Immunization history:: Adult Immunizations up to date. - Social history:: Smoking status: unknown. - Ebola Screening: : No symptoms or risks identified at this time. ROS: 02:13 Constitutional: Negative for fever, chills, and weight loss, Neck: Negative for injury, kb pain, and swelling, Cardiovascular: Negative for chest pain, palpitations, and edema, Respiratory: Negative for shortness of breath, cough, wheezing, and pleuritic chest pain, Back: Negative for injury and pain, MS/Extremity: Negative for injury and deformity, Skin: Negative for injury, rash, and discoloration, Neuro: Negative for headache, weakness, numbness, tingling, and seizure. 02:13 Abdomen/GI: Positive for nausea and vomiting, Negative for abdominal pain, diarrhea, constipation, abdominal cramps, abdominal distension, anorexia. Exam: 02:13 Constitutional: This is a well developed, well nourished patient who is awake, alert, kb and in no acute distress. Head/Face: Normocephalic, atraumatic. Neck: Trachea midline, no thyromegaly or masses palpated, and no cervical lymphadenopathy. Supple, full range of motion without nuchal rigidity, or vertebral point tenderness. No Meningismus. Chest/axilla: Normal chest wall appearance and motion. Nontender with no deformity. No lesions are appreciated. Cardiovascular: Regular rate and rhythm with a normal S1 and S2. No gallops, murmurs, or rubs. Normal PMI, no JVD. No pulse deficits. Respiratory: Lungs have equal breath sounds bilaterally, clear to auscultation and percussion. No rales, rhonchi or wheezes noted. No increased work of breathing, no retractions or nasal flaring. Back: No spinal tenderness. No costovertebral tenderness. Full range of motion. Skin: Warm, dry with normal turgor. Normal color with no rashes, no lesions, and no evidence of cellulitis. MS/ Extremity: Pulses equal, no cyanosis. Neurovascular intact. Full, normal range of motion. Neuro: Awake and alert, GCS 15, oriented to person, place, time, and situation. Cranial nerves II-XII grossly intact. Motor strength 5/5 in all extremities. Sensory grossly intact. Cerebellar exam normal. Normal gait. 02:13 Abdomen/GI: Inspection: abdomen appears normal, Bowel sounds: normal, in all quadrants, Palpation: soft, in all quadrants, mild abdominal tenderness, in the right lower quadrant and left lower quadrant. Vital Signs: 00:26 BP 154 / 71; Pulse 68; Resp 16; Temp 98.6(TE); Pulse Ox 94% on R/A; Weight 77.11 kg ak1 (R); Height 5 ft. 8 in. (172.72 cm) (R); 01:28 BP 131 / 58; Pulse 71; Resp 14; Pulse Ox 94% on R/A; ak1 02:42 BP 132 / 60; Pulse 64; Resp 14; Temp 98.5; Pulse Ox 90% on R/A; ak1 00:26 Body Mass Index 25.85 (77.11 kg, 172.72 cm) ak1 MDM: 00:23 Patient medically screened. kb 01:28 Data reviewed: vital signs, nurses notes. Data interpreted: Pulse oximetry: on room air kb is 94 %. Interpretation: normal. ED course: Caregiver reports pt's daughter, the home health nurse and dr sent pt here for a CT of her head to check for concussion. I reviewed CT from day of fall and it was negative for acute findings. Caregiver educated on those findings and that a concussion does not show up on CT. Still wants CT head today. States the pt's daughter will make her bring her back again if we don't do it now.. 02:48 Counseling: I had a detailed discussion with the patient and/or guardian regarding: the kb historical points, exam findings, and any diagnostic results supporting the discharge/admit diagnosis, lab results, radiology results, the need for outpatient follow up, a family practitioner, to return to the emergency department if symptoms worsen or persist or if there are any questions or concerns that arise at home. 03/07 00:23 Order name: Basic Metabolic Panel; Complete Time: 01:17 kb 03/07 00:23 Order name: CBC with Diff; Complete Time: 01:24 kb 03/07 00:23 Order name: Hepatic Function; Complete Time: : kb 03/07 00:23 Order name: Lipase; Complete Time: :17 kb 03/07 01:23 Order name: CBC Smear Scan; Complete Time: 01:24 EDMS 03/07 01:45 Order name: Urine Dipstick--Ancillary (enter results); Complete Time: 02:18 ar5 03/07 00:23 Order name: IV Saline Lock; Complete Time: 00:38 kb 03/07 00:23 Order name: Labs collected and sent; Complete Time: 00:38 kb 03/07 01:18 Order name: CT Abd/Pelvis - W/Contrast kb 03/07 01:19 Order name: Urine Dipstick-Ancillary (obtain specimen); Complete Time: 02:02 kb 03/07 01:27 Order name: CT Head Brain wo Cont kb Administered Medications: 00:40 Drug: Zofran 4 mg Route: IVP; Site: right antecubital; cc3 01:28 Follow up: Response: No adverse reaction; No adverse reactionno vomiting noted or ak1 reported while in ER8. Disposition: 03/07/19 02:49 Discharged to Home. Impression: Nausea and vomiting. - Condition is Stable. - Discharge Instructions: Nausea and Vomiting, Adult, [id number]. - Prescriptions for Zofran 4 mg Oral Tablet - take 1 tablet by ORAL route every 6 hours As needed; 20 tablet. - Medication Reconciliation Form, Thank You Letter, Antibiotic Education, Prescription Opioid Use form. - Follow up: Emergency Department; When: As needed; Reason: Worsening of condition. Follow up: Private Physician; When: 2 - 3 days; Reason: Recheck today's complaints, Continuance of care, Re-evaluation by your physician. Addendum: 03/08/2019 06:51 Co-signature as Attending Physician, Michel Singleton MD I agree with the assessment and t w4 plan of care. Signatures: Dispatcher [employer] EDMS Ekta Child, RADHAC ELECTRIC TRACK SWITCH MAINTAINER-Audrey Owen RN RN ak1 Michel Singleton MD MD tw4 Dena Gandhi cc3 Corrections: (The following items were deleted from the chart) 03/07 01:32 01:28 ED course: Caregiver reports pt's daughter, the home health nurse and dr sent pt kb here for a CT of her head to check for concussion. I reviewed CT from day of fall and it was negative for acute findings. Caregiver educated on that. Still wants CT head today. States the pt's daughter will make her bring her back again if we don't do it now.. kb 03:09 02:49 03/07/2019 02:49 Discharged to Home. Impression: Nausea and vomiting. Condition ak1 is Stable. Forms are Medication Reconciliation Form, Thank You Letter, Antibiotic Education, Prescription Opioid Use. Follow up: Emergency Department; When: As needed; Reason: Worsening of condition. Follow up: Private Physician; When: 2 - 3 days; Reason: Recheck today's complaints, Continuance of care, Re-evaluation by your physician. kb
--- NOTE | 2019-03-07 02:50 | ER ---
Nurse's Notes [facility] Name: Argenis Wayne Age: 83 yrs Sex: Female : 1935 Arrival Date: 03/07/2019 Time: 00:22 Bed 8 Private MD: Diagnosis: Nausea and vomiting Presentation: 03/07 00:35 Presenting complaint: EMS states: pt has been evaluated Friday02/26/19 for a fall and ak1 03/04/19 for a fall. 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 pt stated she has vomited "at least 6 times today" pt with multiple stages of healing bruising to her face noted upon triage. Transition of care: patient was received from another setting of care (long-term care facility), [facility]. Onset of symptoms was March 05, 2019. Risk Assessment: Do you want to hurt yourself or someone else? Patient reports no desire to harm self or others. Initial Sepsis Screen: Does the patient meet any 2 criteria? No. Patient's initial sepsis screen is negative. Does the patient have a suspected source of infection? No. Patient's initial sepsis screen is negative. Note pt caregiver is at bedside. Care prior to arrival: None. 00:35 Method Of Arrival: EMS: [facility] ak1 00:35 Acuity: IVAN 3 ak1 Triage Assessment: 00:35 General: Appears uncomfortable, Behavior is calm, cooperative. Pain: Denies pain. EENT: ak1 No signs and/or symptoms were reported regarding the EENT system. Neuro: Level of Consciousness is awake, alert, obeys commands, Oriented to person, place, time, situation, Speech is normal. Cardiovascular: No deficits noted. Respiratory: No deficits noted. 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 : No signs and/or symptoms were reported regarding the genitourinary system. Derm: Bruising that is multiple sites to the face in various stages of healing. . Musculoskeletal: No signs and/or symptoms reported regarding the musculoskeletal system. Historical: - Allergies: 00:32 Sulfa (Sulfonamide Antibiotics); ak1 00:32 PROPOXYPHENE; ak1 00:32 Hydrocodone-Acetaminophen; ak1 00:32 Codeine; ak1 00:32 atorvastatin; ak1 - Home Meds: 00:32 amlodipine 5 mg tab 1 tab once daily [Active]; [place] Thyroid 60 mg Oral tab daily for ak1 Hypothyroidism [Active]; aspirin 81 mg Oral TbEC 1 tab once daily for Myocardial Infarction Prevention [Active]; carvedilol 3.125 mg Oral tab 1 tab 2 times per day for Hypertension [Active]; Centrum Silver Oral daily [Active]; cranberry 500 mg Oral cap daily [Active]; digoxin 125 mcg Oral tab 1 tab once daily [Active]; donepezil 10 mg Oral tab 1 tab once daily [Active]; Invokamet 150-1,000 mg Oral tab 1 tab 2 times per day [Active]; Januvia 100 mg Oral tab 1 tab once daily [Active]; loperamide 2 mg Oral tab as needed [Active]; memantine 10 mg Oral tab 2 times per day [Active]; metformin 1,000 mg Oral tab 1 tab 2 times per day [Active]; naproxen sodium 500 mg Oral TM24 1 tabs twice a day [Active]; nitrofurantoin macrocrystal 50 mg Oral cap once daily [Active]; olanzapine 2.5 mg Oral tab 1 tabs once daily [Active]; olanzapine 2.5 mg Oral tab once daily [Active]; olanzapine 2.5 mg Oral tab 1 tabs once daily [Active]; pantoprazole 40 mg Oral TbEC 1 tab once daily [Active]; Restasis 0.05 % ophthalmic dpet 1 drop 2 times per day [Active]; sertraline 100 mg Oral tab 1.5 tabs once daily [Active]; simvastatin 40 mg Oral tab 1 tab once daily [Active]; tramadol 50 mg Oral tab 1 tab every 6 hours [Active]; Vitamin B-12 1,000 mcg Oral TbER 2000 mcg daily [Active]; Vitamin D3 1,000 unit Oral cap daily [Active]; Vitamin B-12 Oral daily [Active]; Vitamin D Oral 1000 unit daily [Active]; Vitamin D Oral daily [Active]; sertraline 100 mg Oral tab 1.5 tabs once daily [Active]; Restasis 0.05 % ophthalmic dpet 1 drop 2 times per day [Active]; pantoprazole 40 mg Oral TbEC 1 tab once daily [Active]; - PMHx: 00:32 Anxiety; CAD; CVA; Dementia; Diabetes - NIDDM; GERD; High Cholesterol; Hypertension; ak1 Hypothyroidism; - Immunization history:: Adult Immunizations up to date. - Social history:: Smoking status: unknown. - Ebola Screening: : No symptoms or risks identified at this time. Screenin:42 Abuse screen: Denies threats or abuse. Denies injuries from another. Nutritional ak1 screening: No deficits noted. Tuberculosis screening: No symptoms or risk factors identified. Fall Risk Fall in past 12 months (25 points). Assessment: 01:26 GI: see triage assessment. pt currently on bedpan to provide urine sample. ak1 Musculoskeletal: pt able to move all extremities, bending both knees to lift hips for placement of bedpan. 02:42 GI: pt used bedside commode with assistance. ak1 03:08 Reassessment: pt ambulated with assistance to wheelchair for discharge. pt left via POV ak1 with caregiver back to [facility]. Vital Signs: 00:26 BP 154 / 71; Pulse 68; Resp 16; Temp 98.6(TE); Pulse Ox 94% on R/A; Weight 77.11 kg ak1 (R); Height 5 ft. 8 in. (172.72 cm) (R); 01:28 BP 131 / 58; Pulse 71; Resp 14; Pulse Ox 94% on R/A; ak1 02:42 BP 132 / 60; Pulse 64; Resp 14; Temp 98.5; Pulse Ox 90% on R/A; ak1 00:26 Body Mass Index 25.85 (77.11 kg, 172.72 cm) ak1 ED Course: 00:22 Patient arrived in ED. bb 00:23 Ekta Child FNP-C is PHCP. kb 00:23 Michel Singleton MD is Attending Physician. kb 00:26 Audrey Reynolds, URVASHI is Primary Nurse. ak1 00:26 Arm band placed on Patient placed in an exam room, on a stretcher, on pulse oximetry, ak1 Patient notified of wait time. 00:30 Inserted saline lock: 20 gauge in right antecubital area, using aseptic technique. cc3 Blood collected. 00:40 Triage completed. ak1 00:42 Patient has correct armband on for positive identification. Bed in low position. Call ak1 light in reach. Side rails up X2. Adult w/ patient. Pulse ox on. NIBP on. 02:11 CT Head Brain wo Cont In Process Unspecified. EDMS 02:12 CT Abd/Pelvis - W/Contrast In Process Unspecified. EDMS 03:07 No provider procedures requiring assistance completed. IV discontinued, intact, ak1 bleeding controlled, No redness/swelling at site. Pressure dressing applied. Administered Medications: 00:40 Drug: Zofran 4 mg Route: IVP; Site: right antecubital; cc3 01:28 Follow up: Response: No adverse reaction; No adverse reactionno vomiting noted or ak1 reported while in ER8. Outcome: 02:49 Discharge ordered by . gabe 03:07 Discharged to alf. pt left via POV with caregiver back to rory wynn ak1 03:07 Condition: stable 03:07 Discharge instructions given to patient, alf, aerodynamic consultant, Instructed on discharge instructions, follow up and referral plans. medication usage, Demonstrated understanding of instructions, follow-up care, medications, Prescriptions given X 1. 03:09 Patient left the ED. ak1 Signatures: Dispatcher [employer] EDMS Ekta Child, TELLER VAULT-C MIKE-Nova Bower, RN RN Audrey Gonzalez RN RN ak1 Dena Gandhi cc3
--- NOTE | 2019-03-08 13:18 | RAD REPORT ---
EXAM DESCRIPTION: CT ABDOMEN AND PELVIS WITH CONTRAST. 03/07/2019 CLINICAL HISTORY: Vomiting for two days. COMPARISON: None. TECHNIQUE: Axial [address] imaging of the abdomen and pelvis performed utilizing intravenous contrast. Reformatted coronal and sagittal images reviewed. A dose reduction technique was utilized with automated exposure control according to patient size. FINDINGS: LOWER THORAX: Small layering left pleural effusion. Bilateral lower lobe subpleural atele ctasis. Groundglass densities medial right lower lobe may represent pneumonitis. Heart is mildly enla rged. No pericardial fluid. ABDOMEN: LIVER/GALLBLADDER: Enlarged liver to 24 cm. Decreased attenuation due to mild diffuse steatosis. Ant erior superior subcentimeter cysts. No mass or biliary dilatation. Normal gallbladder. SPLEEN/PANCREAS: Normal spleen. Normal pancreas. KIDNEYS/ADRENAL GLANDS: 1.7 cm right adrenal nodule does not meet criteria for benign adenoma. Teena l left adrenal gland. Normal right and left kidney. No perinephric edema. RETROPERITONEAL VESSELS/NODES: Moderate aortic atherosclerosis. Mesenteric vessels appear normal. No aortic aneurysm. Normal caliber inferior vena cava. No lymphadenopathy. BOWEL: Small hiatal hernia. Normal remaining stomach. Small bowel caliber is within normal limits. A ppendix is not visualized. Normal colon. MESENTERY/PERITONEUM: No adenopathy. No ascites. No free air. Tiny fat-containing umbilical hernia. PELVIS: BLADDER: Normal bladder. GENITAL ORGANS: Anterior uterine lobular 3.1 cm mass consistent with fibroid. PERITONEUM: No pelvic free fluid or adenopathy. BONES AND SOFT TISSUES: Normal lumbar lordosis. Vertebral body height is within normal limits. Minim al degenerative intrasubstance fixation of L4 on L5. L4-5 and L5-S1 facet arthropathy. Benign hemangi [place] within the T8 11 and T12 vertebral bodies. Intact bony pelvis. Normal hips. IMPRESSION: 1. Marked hepatomegaly with mild steatosis. 2. Small hiatal hernia. 3. Right adrenal 1.7 cm indeterminate nodule. Consider MRI abdomen to further characterize. 4. Small layering left pleural effusion. Bilateral lower lobe atelectasis. 5. Uterine fibroid. Electronically signed by: Christelle Lawson DO 03/07/2019 2:39 AM CDT Due to temporary technical issues with the PACS/Fluency reporting system, reports are being signed by the in house radiologist as a courtesy to ensure prompt reporting. The interpreting radiologist is f alealy responsible for the content of the report.
--- NOTE | 2019-03-08 13:19 | RAD REPORT ---
EXAM DESCRIPTION: Head Brain Wo Cont CLINICAL HISTORY: 83 years Female TRAUMA COMPARISON: CT head without contrast dated November 17, 2017 TECHNIQUE: Contiguous axial images of the brain were obtained without the administration of intraven ous contrast.This exam was performed according to our departmental dose-optimization program which in cludes use of Automated Exposure Control, adjustment of the mA and/or kV according to patient size an d/or use of iterative reconstruction technique. FINDINGS: Brain: No acute intracranial hemorrhage. No acute territorial infarct. No extra-axial zana ection. No mass effect or herniation. Mild prominence of the sulci and cisterns Confluent periventr icular and subcortical white matter hypodensity is noted. Ventricles: Allowing for underlying cerebral volume loss, ventricular size appears within normal limi ts.. Globes and orbits: No acute abnormality. Bones: No acute osseous finding. Paranasal sinuses: Paranasal sinuses are clear. Mastoid air cells: Well pneumatized. Soft tissues: Left supraorbital soft tissue swelling and hematoma formation. IMPRESSION: No acute intracranial hemorrhage, hydrocephalus or herniation. Left supraorbital soft tissue swelling and hematoma. Unchanged cerebral volume loss and chronic small vessel ischemic changes.. Electronically signed by: Rakesh Gonzales DO 03/07/2019 2:35 AM CDT Due to temporary technical issues with the PACS/Fluency reporting system, reports are being signed by the in house radiologist as a courtesy to ensure prompt reporting. The interpreting radiologist is f ully responsible for the content of the report.
== END 2019-03-07 03:09 | disposition home or self-care (01) ==
LOC: ER 00:15
DX: R11.2 Nausea with vomiting, unspecified (principal); I10 Essential (primary) hypertension; E11.9 Type 2 diabetes mellitus without complications; E78.00 Pure hypercholesterolemia, unspecified; E03.9 Hypothyroidism, unspecified; F41.9 Anxiety disorder, unspecified; I25.10 Atherosclerotic heart disease of native coronary artery without angina pectoris; Z79.82 Long term (current) use of aspirin; Z88.2 Allergy status to sulfonamides; Z88.5 Allergy status to narcotic agent; Z88.8 Allergy status to other drugs, medicaments and biological substances; Z86.73 Personal history of transient ischemic attack (TIA), and cerebral infarction without residual deficits
CPT/HCPCS: 85025; 80048; 36415; 80076; 81003; 83690; 70450; 74177; 96374; 99284; Q9967; J2405

== ENCOUNTER 2019-08-09 11:31 | Emergency (ER) | payer OTHER ==
[2019-08-09] MEDS ORDERED: ACETAMINOPHEN 500 MG TAB ONE (12:19)
[2019-08-09] MEDS ORDERED: NA CHLORIDE 0.9% 1,000 ML ONE (12:19)
[2019-08-09 12:26] LABS: Absolute Lymphocytes (CBC) 1.3 K/uL (0.7-4.9); Basophils % 0.5 % (0-1.3); Hematocrit 27.2 % (36.0-45.0); Lymphocytes % 11.7 % (15.3-44.8); MPV 7.4 fL (7.6-11.3); RBC Red Blood Cell Count 4.17 M/uL (3.86-4.86)
[2019-08-09 12:36] LABS: Protime INR 1.29
--- NOTE | 2019-08-09 12:36 | RAD REPORT ---
EXAM DESCRIPTION: CT - Head Brain Wo Cont - 08/09/2019 12:25 pm CLINICAL HISTORY: Left-sided facial weakness, left-sided facial droop, history of dementia COMPARISON: CT February 2019 TECHNIQUE: Axial 5 mm thick images of the head were obtained without IV contrast. All CT scans are performed using dose optimization technique as appropriate and may include automated exposure control or mA/KV adjustment according to patient size. FINDINGS: No intracranial hemorrhage, mass, edema or shift of mid-line structures. No acute infarcti on changes seen. No abnormal extra-axial fluid collections. Patient has atrophy change. Ventricles ar e prominent and probably out of proportion to the amount of volume loss present. Pattern is similar t o prior imaging. Correlation is needed with any history or exam findings of normal pressure hydroceph alus. Arterial calcifications are present. Mucosal thickening and small air-fluid levels present in e ach maxillary sinus. Mastoid air cells are clear. No globe or orbital contents suspicious finding. No acute bony findings. IMPRESSION: No acute intracranial finding identifiable. Atrophy and chronic ischemic changes are present. The chronic ischemic change can possibly masking no nhemorrhagic infarction. Ventricular size appears slightly out of proportion to the volume loss. This is a stable finding but correlation can be made with any findings of normal pressure hydrocephalus. Mild bilateral maxillary sinusitis.
--- NOTE | 2019-08-09 12:42 | RAD REPORT ---
EXAM DESCRIPTION: CT - Abdomen Pelvis Wo Contrast - 08/09/2019 12:25 pm CLINICAL HISTORY: groin pain Abdominal pain COMPARISON: Abdomen Pelvis W Contrast dated 03/07/2019; CT ABD PELVIS W WO CONTRAST dated 06/20/2015 TECHNIQUE: Axial [address] imaging of the abdomen and pelvis was performed without IV contrast. No IV contrast was given because of allergy, abnormal renal function, patient refusal or physician re quest. No oral contrast administered. All CT scans are performed using dose optimization technique as appropriate and may include automated exposure control or mA/KV adjustment according to patient size. FINDINGS: Fibrotic changes are present in each lung base. Left-sided pleural effusions seen in February h as resolved. No pericardial effusion. Aortic and Coronary artery calcifications are present. Minimal hiatal hernia is seen. Distal esophagus not clearly different. No suspicious liver finding on noncontrast imaging. Liver parenchyma is somewhat heterogeneous; howev er, spray artifact from the patient's arm and a metallic device along the right lateral skin surface precludes accurate assessment of the liver. No splenomegaly. No focal splenic finding of concern. No pancreatic abnormality. Gallbladder and bili micky tree are also without suspicious finding. Gallstones can be occult on CT imaging. Active gallblad babar process is doubtful. No hydronephrosis or suspicious renal mass. Numerous phleboliths and pelvic calcifications are presen t. No significant adrenal finding. Isodense renal masses and pyelonephritis cannot be excluded in the absence of IV contrast. Well filled urinary bladder shows no acute finding. Uterus is slightly lobul ated but not clearly different. Primary ovarian process is not suspected. No gastric dilatation or wall thickening. No acute small bowel finding. Several small bowel loops are interposed between the well filled bladder and the origin of the right inguinal canal. No inguinal h ernia defect is present. Appendix is not clearly defined. No direct or indirect evidence for appendic itis. Moderate stool volume fills the colon. No free air, free fluid or inflammatory stranding. No he rnia, mass or bulky lymphadenopathy. No suspicious bony findings. IMPRESSION: Non-contrast enhanced CT abdomen and pelvis imaging show no significant or suspicious fi nding. Nonacute findings are detailed in the body of the report. Isodense masses of the solid abdominal viscera an pyelonephritis findings are not excluded on a nonco ntrast study.
[2019-08-09 12:59] LABS: ALT/SGPT 20 U/L (12-78); AST/SGOT 19 U/L (15-37); Albumin 2.8 g/dL (3.4-5.0); Alkaline Phosphatase 75 U/L (45-117); BUN Blood Urea Nitrogen 11 mg/dL (7-18); Bicarbonate 24 mmol/L (21-32); Bilirubin Direct 0.1 mg/dL (0-0.2); Bilirubin Total 0.3 mg/dL (0.2-1.0); Creatine Phosphokinase 38 U/L (26-192); Glucose Level 144 mg/dL (74-106); Lipase 192 U/L (73-393); Magnesium 1.8 mg/dL (1.8-2.4); Potassium 4.3 mmol/L (3.5-5.1); Sodium Level 137 mmol/L (136-145); Troponin (Emerg Dept Use Only) < 0.02 ng/mL (0.0-0.045)
[2019-08-09 13:05] LABS: Anisocytosis 1+; Blood Morphology Comment NOTED (NOT SEEN); Hypochromasia 1+; Platelet Estimate ADEQ; Poikilocytosis 1+; Urine White Blood Cell Casts OK
[2019-08-09 13:06] LABS: Elliptocytes 1+
[2019-08-09 13:20] LABS: Barbiturates NEGATIVE (NEGATIVE); Benzodiazepines NEGATIVE (NEGATIVE); Cocaine NEGATIVE (NEGATIVE); METHAMPHETAM NEGATIVE (NEGATIVE); Methadone NEGATIVE (NEGATIVE); Opiates NEGATIVE (NEGATIVE); Phencyclidine NEGATIVE (NEGATIVE); THC Cannibis NEGATIVE (NEGATIVE)
[2019-08-09 13:25] LABS: Urine Blood NEGATIVE (NEG); Urine Glucose NEGATIVE (NEG); Urine Protein NEGATIVE (NEG); Urine pH 5.5 (5.0-7.0)
--- NOTE | 2019-08-09 13:29 | RAD REPORT ---
EXAM DESCRIPTION: Sacha Single View08/09/2019 1:13 pm CLINICAL HISTORY: Chest pain COMPARISON: February 2019 FINDINGS: Mild bilateral interstitial lung opacities unchanged presumably chronic. The heart is mildly enlarged
[2019-08-09 13:31] LABS: Urine Bacteria <20 /HPF (<20); Urine Culture Reflex Order NOT NEEDED; Urine RBC <5 /HPF (NONE SEEN); Urine Yeast MANY (NONE SEEN)
[2019-08-09] MEDS ORDERED: FLUCONAZOLE 100 MG TAB ONE (14:04)
--- NOTE | 2019-08-09 14:14 | ER ---
Nurse's Notes [facility] Name: Argenis Wayne Age: 84 yrs Sex: Female : 1935 Arrival Date: 08/09/2019 Time: 11:35 Bed 17 Private MD: Diagnosis: coleen urethritis;dehydration;anemia;generalized pain Presentation: 08/09 11:36 Presenting complaint: EMS states: pt from [facility], last known normal was Friday, pt is tw2 normally A\T\O to person and place, today alert to person only, left sided facial droop noted and left sided weakness, Hx: HTN, DM, hyperlipidemia, dementia, anxiety, 92% RA, 142/71, hr 80, BGL 161. Transition of care: patient was not received from another setting of care. Onset of symptoms was August 09, 2019. Risk Assessment: Do you want to hurt yourself or someone else? Patient reports no desire to harm self or others. Initial Sepsis Screen: Does the patient meet any 2 criteria? No. Patient's initial sepsis screen is negative. Does the patient have a suspected source of infection? No. Patient's initial sepsis screen is negative. Care prior to arrival: None. 11:36 Method Of Arrival: EMS: [facility] tw2 11:36 Acuity: IVAN 3 tw2 Triage Assessment: 12:02 General: Appears in no apparent distress. comfortable, Behavior is calm, cooperative, bp drowsy. Pain: Denies pain. EENT: No deficits noted. Neuro: Level of Consciousness is obeys commands, confused, Oriented to person. Cardiovascular: No deficits noted. Respiratory: No deficits noted. GI: No signs and/or symptoms were reported involving the gastrointestinal system. : No signs and/or symptoms were reported regarding the genitourinary system. Derm: No deficits noted. Musculoskeletal: No deficits noted. Historical: - Allergies: 11:47 atorvastatin; tw2 11:47 Codeine; tw2 11:47 Hydrocodone-Acetaminophen; tw2 11:47 PROPOXYPHENE; tw 11:47 Sulfa (Sulfonamide Antibiotics); tw2 - Home Meds: 11:47 amlodipine 10 mg oral tab [Active]; [place] Thyroid 60 mg Oral tab daily for tw2 Hypothyroidism [Active]; aspirin 81 mg Oral TbEC 1 tab once daily for Myocardial Infarction Prevention [Active]; carvedilol 3.125 mg Oral tab 1 tab 2 times per day for Hypertension [Active]; cranberry 500 mg Oral cap daily [Active]; Centrum Silver Oral daily [Active]; donepezil 10 mg Oral tab 1 tab once daily [Active]; digoxin 125 mcg Oral tab 1 tab once daily [Active]; Januvia 100 mg Oral tab 1 tab once daily [Active]; memantine 10 mg Oral tab 2 times per day [Active]; metformin 1,000 mg Oral tab 1 tab 2 times per day [Active]; nitrofurantoin macrocrystal 50 mg Oral cap once daily [Active]; olanzapine 2.5 mg Oral tab 1 tabs once daily [Active]; olanzapine 5 mg oral tab [Active]; pantoprazole 40 mg Oral TbEC 1 tab once daily [Active]; sertraline 100 mg Oral tab 1.5 tabs once daily [Active]; simvastatin 40 mg Oral tab 1 tab once daily [Active]; tramadol 50 mg Oral tab 1 tab every 6 hours [Active]; valsartan 80 mg oral tab 1 tab once daily [Active]; Vitamin B-12 1,000 mcg Oral TbER 2000 mcg daily [Active]; Vitamin D3 1,000 unit Oral cap daily [Active]; - PMHx: 11:47 Anxiety; CAD; CVA; Dementia; Diabetes - NIDDM; GERD; High Cholesterol; Hypertension; tw2 Hypothyroidism; - Immunization history:: Adult Immunizations. - Social history:: Smoking status: . - Ebola Screening: : Patient denies travel to an Ebola-affected area in the 21 days before illness onset. - Family history:: not pertinent. - Hospitalizations: : No recent hospitalization is reported. Screenin:39 Abuse screen: Denies threats or abuse. Nutritional screening: No deficits noted. tw2 Tuberculosis screening: No symptoms or risk factors identified. Fall Risk Secondary diagnosis (15 points) impaired mobility. 12:37 Patient has been NPO before screening. DROWSY The patient does not exhibit slurred or bp garbled speech The patient is not exhibiting difficulty speaking. The patient does not exhibit difficulty understanding words. The patient is able to swallow own secretions with no drooling or need for suction. Patient tolerated one teaspoon of water. No drooling, immediate coughing, gurgling, or clearing of the throat was noted. The patient tolerated 90mL of water. No drooling, immediate coughing, gurgling, or clearing of the throat was noted. The patient passed the bedside swallow screening. Oral medications may be given as ordered. Contact Physician for further diet orders. Provider notified of bedside swallow screening results: Ernesto Pacheco MD. Assessment: 12:04 General: SEE TRIAGE NOTE. bp 12:16 Reassessment: PT TO CT. bp 12:37 Reassessment: PT RETURNED FROM CT. bp 14:16 Reassessment: REPORT TO [facility], TRANSPORT EN ROUTE. bp Vital Signs: 11:38 BP 152 / 66; Pulse 78; Resp 21; Temp 98.7; Pulse Ox 99% on R/A; Weight 65.77 kg (R); bp 12:15 BP 138 / 65; Pulse 80; Resp 26; Pulse Ox 99% ; bp 12:38 BP 136 / 62; Pulse 77; Resp 22; Pulse Ox 99% ; bp 14:09 BP 141 / 62; Pulse 86; Resp 23; Pulse Ox 98% ; bp NIH Stroke Scale Scores: 12:02 NIHSS Score: 5 bp ED Course: 11:35 Patient arrived in ED. tw2 11:36 Keanu Marinelli, RN is Primary Nurse. bp 11:38 Triage completed. tw2 11:38 Arm band placed on Patient placed in an exam room. tw2 11:43 Ernesto Pacheco MD is Attending Physician. wa 12:04 Patient has correct armband on for positive identification. Bed in low position. Call bp light in reach. Side rails up X2. Adult w/ patient. 12:04 EKG done, by installation tech. reviewed by Ernesto Pacheco MD. at1 12:15 Flu Sent. bp 12:16 Inserted saline lock: 22 gauge in right forearm, using aseptic technique. Blood bp collected. 12:24 CT Head Brain wo Cont In Process Unspecified. EDMS 12:26 CT Abd/Pelvis - Without Contrast In Process Unspecified. EDMS 12:50 Straight cath inserted, using sterile technique, Specimen obtained. 15Fr Returned dh3 700mL. Patient tolerated well. 13:13 Chest Single View XRAY In Process Unspecified. EDMS 14:11 Luna Betancourt MD is Referral Physician. wa 14:12 Heidi Norris MD is Referral Physician. wa 14:12 Jose Eubanks MD is Referral Physician. wa 14:12 Manav Mohan MD is Referral Physician. wa 14:28 No provider procedures requiring assistance completed. IV discontinued, intact, bp bleeding controlled, No redness/swelling at site. Pressure dressing applied. Administered Medications: 12:00 Drug: NS 0.9% 1000 ml Route: IV; Rate: 1 bolus; Site: right forearm; bp 13:00 Follow up: IV Status: Completed infusion; IV Intake: 1000ml bp 12:37 Drug: Tylenol 1000 mg Route: PO; bp 13:06 Follow up: Response: No adverse reaction bp 14:00 Drug: DiFLUcan 150 mg Route: PO; bp 14:06 Follow up: Response: No adverse reaction bp Intake: 13:00 IV: 1000ml; Total: 1000ml. bp Outcome: 14:13 Discharge ordered by MD. wa 14:19 Discharged to home via wheelchair, with family. bp 14:19 Condition: stable 14:19 Discharge instructions given to patient, halfway, Instructed on discharge instructions, follow up and referral plans. medication usage, Demonstrated understanding of instructions, follow-up care, medications, Prescriptions given X 1. 14:29 Patient left the ED. bp NIH Stroke Scale - NIH Stroke Score Date: 08/09/2019 Time: 12:02 Total Score = 5 1a. Level of Consciousness (LOC) - 1(Not Alert) 1b. Level of Consciousness (LOC) (Year \T\ Age) - 1(One) 1c. LOC Commands (Open \T\ Closes Eyes/Prefitter) - 0(Both) 2. Best Gaze (Lateral Gaze Paresis) - 0(Normal) 3. Visual Field Loss - 0(No visual loss) 4. Facial Palsy - 1(Minor Paralysis) 5a. Left Arm: Motor (10-second hold) - 1(Drift) 5b. Right Arm: Motor (10-second hold) - 0(No drift) 6a. Left Leg: Motor (5-second hold - always test supine) - 1(Drift) 6b. Right Leg: Motor (5-second hold - always test supine) - 0(No drift) 7. Limb Ataxia (finger/nose \T\ heel/perdue - test with eyes open) - 0(Absent) 8. Sensory Loss (pinprick arms/legs/face) - 0(Normal) 9. Best Language: Aphasia (description/naming/reading) - 0(No aphasia) 10. Dysarthria (speech clarity - read or repeat words) - 0(Normal) 11. Extinction and Inattention (visual/tactile/auditory/spatial/personal) - 0(No abnormality) Initials: bp Signatures: Dispatcher [employer] EDMS Azucena Cornelius, virtual assistant for advertisers EKG Tat1 Cristela Wong RN RN tw2 Coral Richards 3 Ernesto Pacheco MD MD wa Peltier, Brian, RN RN bp Corrections: (The following items were deleted from the chart) 12:02 11:38 BP 152 / 66; Pulse 78bpm; Resp 21bpm; Pulse Ox 99% RA; 65.77 kg Reported; bp tw2
--- NOTE | 2019-08-09 14:14 | EDPHYS ---
Physician Documentation [facility] Name: Argenis Wayne Age: 84 yrs Sex: Female : 1935 Arrival Date: 08/09/2019 Time: 11:35 Bed 17 Private MD: ED Physician Ernesto Pacheco HPI: 08/09 11:54 This 84 yrs old Female presents to ER via EMS with complaints of Altered wa Mental Status, S/S of Possible Stroke. 11:54 The patient presents with decreased responsiveness, per assisted living, not moving her wa extremities as much as she used to . Onset: The symptoms/episode began/occurred 2 day(s) ago. Possible causes: unknown. Associated signs and symptoms: Pertinent positives: pt admits to TOLBERT and pain in the groin. Current symptoms: In the emergency department the patient's symptoms are unchanged from the initial presentation. Patient's baseline: Neuro: alert but confused, Motor: uses wheelchair but moves all extremities per pt's care-taker. , Ambulation: unable to walk, uses wheelchair, Speech: normal, The patient has a previous history of CVA. The patient has experienced similar episodes in the past. The patient has not recently seen a physician. per pt's care-taker, at time of leaving her shift this past Friday, pt's urine was noted to be dark. pt however was at baseline. today she says she was told pt not moving her legs as much as usual so to bring to ER. she states pt answering all her questions as usual however. pt actually eat a doughnut. pt admits to TOLBERT "the whole damn thing hurts" to MD. Also admits to pain in the groin. denies chest pain or SOB. denies fever . Historical: - Allergies: 11:47 atorvastatin; tw2 11:47 Codeine; tw2 11:47 Hydrocodone-Acetaminophen; tw2 11:47 PROPOXYPHENE; tw2 11:47 Sulfa (Sulfonamide Antibiotics); tw2 - Home Meds: 11:47 amlodipine 10 mg oral tab [Active]; [place] Thyroid 60 mg Oral tab daily for tw2 Hypothyroidism [Active]; aspirin 81 mg Oral TbEC 1 tab once daily for Myocardial Infarction Prevention [Active]; carvedilol 3.125 mg Oral tab 1 tab 2 times per day for Hypertension [Active]; cranberry 500 mg Oral cap daily [Active]; Centrum Silver Oral daily [Active]; donepezil 10 mg Oral tab 1 tab once daily [Active]; digoxin 125 mcg Oral tab 1 tab once daily [Active]; Januvia 100 mg Oral tab 1 tab once daily [Active]; memantine 10 mg Oral tab 2 times per day [Active]; metformin 1,000 mg Oral tab 1 tab 2 times per day [Active]; nitrofurantoin macrocrystal 50 mg Oral cap once daily [Active]; olanzapine 2.5 mg Oral tab 1 tabs once daily [Active]; olanzapine 5 mg oral tab [Active]; pantoprazole 40 mg Oral TbEC 1 tab once daily [Active]; sertraline 100 mg Oral tab 1.5 tabs once daily [Active]; simvastatin 40 mg Oral tab 1 tab once daily [Active]; tramadol 50 mg Oral tab 1 tab every 6 hours [Active]; valsartan 80 mg oral tab 1 tab once daily [Active]; Vitamin B-12 1,000 mcg Oral TbER 2000 mcg daily [Active]; Vitamin D3 1,000 unit Oral cap daily [Active]; - PMHx: 11:47 Anxiety; CAD; CVA; Dementia; Diabetes - NIDDM; GERD; High Cholesterol; Hypertension; tw2 Hypothyroidism; - Immunization history:: Adult Immunizations. - Social history:: Smoking status: . - Ebola Screening: : Patient denies travel to an Ebola-affected area in the 21 days before illness onset. - Family history:: not pertinent. - Hospitalizations: : No recent hospitalization is reported. ROS: 12:03 Constitutional: Negative for fever, chills, and weight loss, Eyes: Negative for injury, wa pain, redness, and discharge, ENT: Negative for injury, pain, and discharge, Neck: Negative for injury, pain, and swelling, Cardiovascular: Negative for chest pain, palpitations, and edema, Respiratory: Negative for shortness of breath, cough, wheezing, and pleuritic chest pain, Abdomen/GI: Negative for abdominal pain, nausea, vomiting, diarrhea, and constipation, Back: Negative for injury and pain, : Negative for injury, bleeding, discharge, and swelling, MS/Extremity: Negative for injury and deformity, Skin: Negative for injury, rash, and discoloration. 12:03 Neuro: Positive for headache. 12:03 All other systems are negative. Exam: 12:05 Constitutional: This is a well developed, well nourished patient who is awake, alert, wa and in no acute distress. Head/Face: Normocephalic, atraumatic. Eyes: Pupils equal round and reactive to light, extra-ocular motions intact. Lids and lashes normal. Conjunctiva and sclera are non-icteric and not injected. Cornea within normal limits. Periorbital areas with no swelling, redness, or edema. Neck: Trachea midline, no thyromegaly or masses palpated, and no cervical lymphadenopathy. Supple, full range of motion without nuchal rigidity, or vertebral point tenderness. No Meningismus. Chest/axilla: Normal chest wall appearance and motion. Nontender with no deformity. No lesions are appreciated. Cardiovascular: Regular rate and rhythm with a normal S1 and S2. No gallops, murmurs, or rubs. Normal PMI, no JVD. No pulse deficits. Respiratory: Lungs have equal breath sounds bilaterally, clear to auscultation and percussion. No rales, rhonchi or wheezes noted. No increased work of breathing, no retractions or nasal flaring. Back: No spinal tenderness. No costovertebral tenderness. Full range of motion. Skin: Warm, dry with normal turgor. Normal color with no rashes, no lesions, and no evidence of cellulitis. MS/ Extremity: Pulses equal, no cyanosis. Neurovascular intact. Full, normal range of motion. 12:05 ENT: Posterior pharynx: dry mucosa. 12:05 Abdomen/GI: Inspection: mildly protuberant. Non-tender however. . 12:05 Neuro: Orientation: to person, place, Motor: moves all extremities symmetrically. no facial droop. speech clear. Vital Signs: 11:38 BP 152 / 66; Pulse 78; Resp 21; Temp 98.7; Pulse Ox 99% on R/A; Weight 65.77 kg (R); bp 12:15 BP 138 / 65; Pulse 80; Resp 26; Pulse Ox 99% ; bp 12:38 BP 136 / 62; Pulse 77; Resp 22; Pulse Ox 99% ; bp 14:09 BP 141 / 62; Pulse 86; Resp 23; Pulse Ox 98% ; bp NIH Stroke Scale Scores: 12:02 NIHSS Score: 5 bp MDM: 11:43 Patient medically screened. al 12:07 Differential Diagnosis: CVA, electrolyte abnormality, intracranial bleed, pneumonia, wa UTI, volume depletion, pt has baseline dementia. per care-taker, at baseline. answers MD questions clearly with no slurred speech. holding eyes closed. no distress. answers appropriately however. will eval to r/o acute illness. 13:43 Data reviewed: vital signs, nurses notes, lab test result(s), labs noted for elevated wa glucose at 144. elevated wbc at 11.0. anemia (microcytic) at 8.8/27.2. TSH 5.48 with near nml free T4. UA noted for yeast. CXR: noted for chronic bilateral interstitial opacities. CT head and CT abd/pelvis: no acute process. Response to treatment: the patient's symptoms have markedly improved after treatment. 13:45 ED course: will give diflucan for yeast. pt otherwise in no distress. improved in ED. wa asking to eat a meal. . 13:47 ED course: pt noted anemic her past visit in February as well however stable H/H. will need wa close f/u. 14:09 Test interpretation: by ED physician or midlevel provider: . ED course: pt conversant. wa NAD. will d/c with close f/u. family wants names of PMDs in the neighborhood as they would like to switch docs. . 08/09 11:52 Order name: UDS; Complete Time: 13:41 08/09 11:52 Order name: Basic Metabolic Panel; Complete Time: 13:38 08/09 11:52 Order name: CBC with Diff; Complete Time: 13:39 08/09 11:52 Order name: CPK; Complete Time: 13:41 08/09 11:52 Order name: Hepatic Function; Complete Time: 13:39 08/09 11:52 Order name: Lipase; Complete Time: 13:41 08/09 11:52 Order name: Magnesium; Complete Time: 13:41 08/09 11:52 Order name: Protime (+inr); Complete Time: 13:40 08/09 11:52 Order name: Troponin (emerg Dept Use Only); Complete Time: 13:41 08/09 11:52 Order name: Flu; Complete Time: 13:41 al 08/09 11:52 Order name: Urine Microscopic Only; Complete Time: 13:40 al 08/09 11:52 Order name: TSH; Complete Time: 13:40 al 08/09 13:00 Order name: T4 Free; Complete Time: 13:40 EDMD 08/09 13:06 Order name: CBC Smear Scan; Complete Time: 13:42 EDMD 08/09 11:52 Order name: CT Head Brain wo Cont; Complete Time: 13:40 al 08/09 11:52 Order name: EKG; Complete Time: 11:53 al 08/09 11:52 Order name: Cardiac monitoring; Complete Time: 12:15 al 08/09 11:52 Order name: EKG - Nurse/Tech; Complete Time: 12:15 al 08/09 11:52 Order name: IV Saline Lock; Complete Time: 12:15 al 08/09 11:52 Order name: Labs collected and sent; Complete Time: 12:15 al 08/09 11:52 Order name: NPO; Complete Time: 11:54 al 08/09 11:52 Order name: O2 Per Protocol; Complete Time: 11:54 al 08/09 11:52 Order name: O2 Sat Monitoring; Complete Time: 11:54 al 08/09 11:52 Order name: Chest Single View XRAY; Complete Time: 13:41 al 08/09 12:04 Order name: CT Abd/Pelvis - Without Contrast; Complete Time: 13:41 al 08/09 13:13 Order name: Urine Dipstick--Ancillary (enter results); Complete Time: 13:38 08/09 13:27 Order name: Diet Ada 1800 Rolly; Complete Time: 13:27 08/09 11:52 Order name: Urine Dipstick-Ancillary (obtain specimen); Complete Time: 13:06 al Administered Medications: 12:00 Drug: NS 0.9% 1000 ml Route: IV; Rate: 1 bolus; Site: right forearm; bp 13:00 Follow up: IV Status: Completed infusion; IV Intake: 1000ml bp 12:37 Drug: Tylenol 1000 mg Route: PO; bp 13:06 Follow up: Response: No adverse reaction bp 14:00 Drug: DiFLUcan 150 mg Route: PO; bp 14:06 Follow up: Response: No adverse reaction bp Disposition: 08/09/19 14:13 Discharged to Home. Impression: coleen urethritis, dehydration, anemia, generalized pain. - Condition is Stable. - Discharge Instructions: Musculoskeletal Pain, Urethritis, Adult, Dehydration, Adult, [id number]. - Prescriptions for Tylenol Extra Strength 500 mg Oral tablet - take 2 tablet by ORAL route every 8 hours As needed as needed; 30 tablet. - Medication Reconciliation Form, Thank You Letter, Antibiotic Education, Prescription Opioid Use form. - Follow up: Private Physician; When: 2 - 3 days; Reason: Recheck today's complaints. Follow up: uLna Betancourt MD; When: 2 - 3 days. Follow up: Heidi Norris MD; When: 2 - 3 days; Reason: Recheck today's complaints. Follow up: Jose Eubanks MD; When: 2 - 3 days; Reason: Recheck today's complaints. Follow up: Manav Mohan MD; When: 2 - 3 days; Reason: Recheck today's complaints. - Problem is new. - Symptoms have improved. - Notes: give 2 extra-strength tylenol for pain 2 to 3 times per day if complaining of pain. do not just give one as that is not enough therapeutic dose to control pain. follow up with her primary doctor as discussed. return to ER for any significant concerns she may have. have her doctor evaluate her for anemia NIH Stroke Scale - NIH Stroke Score Date: 08/09/2019 Time: 12:02 Total Score = 5 1a. Level of Consciousness (LOC) - 1(Not Alert) 1b. Level of Consciousness (LOC) (Year \\T\\ Age) - 1(One) 1c. LOC Commands (Open \\T\\ Closes Eyes/Manager Instrumentation) - 0(Both) 2. Best Gaze (Lateral Gaze Paresis) - 0(Normal) 3. Visual Field Loss - 0(No visual loss) 4. Facial Palsy - 1(Minor Paralysis) 5a. Left Arm: Motor (10-second hold) - 1(Drift) 5b. Right Arm: Motor (10-second hold) - 0(No drift) 6a. Left Leg: Motor (5-second hold - always test supine) - 1(Drift) 6b. Right Leg: Motor (5-second hold - always test supine) - 0(No drift) 7. Limb Ataxia (finger/nose \\T\\ heel/perdue - test with eyes open) - 0(Absent) 8. Sensory Loss (pinprick arms/legs/face) - 0(Normal) 9. Best Language: Aphasia (description/naming/reading) - 0(No aphasia) 10. Dysarthria (speech clarity - read or repeat words) - 0(Normal) 11. Extinction and Inattention (visual/tactile/auditory/spatial/personal) - 0(No abnormality) Initials: bp Signatures: Dispatcher [employer] EDCristela Arshad, RN RN tw2 Ernesto Pacheco MD MD wa Peltier, Brian, RN RN bp Corrections: (The following items were deleted from the chart) 14:29 14:13 08/09/2019 14:13 Discharged to Home. Impression: coleen urethritis; bp dehydration; anemia; generalized pain. Condition is Stable. Forms are Medication Reconciliation Form, Thank You Letter, Antibiotic Education, Prescription Opioid Use. Follow up: Private Physician; When: 2 - 3 days; Reason: Recheck today's complaints. Follow up: Luna Betancourt; When: 2 - 3 days. Follow up: Heidi Norris; When: 2 - 3 days; Reason: Recheck today's complaints. Follow up: Jose Eubanks; When: 2 - 3 days; Reason: Recheck today's complaints. Follow up: Manav Mohan; When: 2 - 3 days; Reason: Recheck today's complaints. Problem is new. Symptoms have improved. violet
[2019-08-09 14:34] VITALS: TEMP 98.7
[2019-08-09 14:38] VITALS: BP 141/62; O2SAT 98
--- NOTE | 2019-08-09 15:13 | EKG ---
Test Date: 2019-08-09 Test Time: 11:59:58 Manager Appointment: NICOL[facility] MEASUREMENT RESULTS: Intervals: Rate: 79 MT: 140 QRSD: 82 QT: 370 QTc: 424 Plato: P: 43 MT: 140 QRS: 0 T: 99 INTERPRETIVE STATEMENTS: Normal sinus rhythm normal ECG Compared to ECG 04/06/2018 16:37:11 Sinus bradycardia no longer present ST (T wave) deviation no longer present Electronically Signed On 08-09-19 15:13:24 CDT by Evens Ash
== END 2019-08-09 14:29 | disposition home or self-care (01) ==
LOC: ER 11:31
DX: E86.0 Dehydration (principal); B37.41 Candidal cystitis and urethritis; D64.9 Anemia, unspecified; R52 Pain, unspecified; I10 Essential (primary) hypertension; E78.00 Pure hypercholesterolemia, unspecified; E11.9 Type 2 diabetes mellitus without complications; F41.9 Anxiety disorder, unspecified; F03.90 Unspecified dementia, unspecified severity, without behavioral disturbance, psychotic disturbance, mood disturbance, and anxiety; E03.9 Hypothyroidism, unspecified; Z79.82 Long term (current) use of aspirin; Z88.2 Allergy status to sulfonamides; Z88.5 Allergy status to narcotic agent; Z88.8 Allergy status to other drugs, medicaments and biological substances; Z86.73 Personal history of transient ischemic attack (TIA), and cerebral infarction without residual deficits
CPT/HCPCS: 93005; 85025; 80048; 36415; 83735; 82550; 85610; 80076; 80307 ×8; 84443; 84484; 84439; 83690; 87804 ×2; 70450; 74176; 71045; 51702; 96360; 99284; J7030; 81003; 81015